=== PATIENT | male | born 1940 | race Caucasian/White ===

== ENCOUNTER 2017-04-24 12:03 | Inpatient (IN) | payer MEDICARE, BC ==
[~2017-04-24] VITALS: Ht 167.6 cm; Wt 58.3 kg
[~2017-04-24 12:03] MED LIST: ADV25050 INHALATION; ALBU18HF INHALATION; AMLO5TAB4 PO; ASPI-664 PO; ATEN-138 PO; CLON-379 PO; HYDR-3671 PO; SIMV40TA2 PO
[2017-04-24 12:05] VITALS: Ht 167.6 cm; Wt 58.3 kg
[2017-04-24 12:44] LABS: BASOPHILS % 0.4 % (0.0-2.0); EOSINOPHILS # 0.1 10^3/ul (0.0-0.5); EOSINOPHILS % 0.9 % (0.0-7.0); HEMATOCRIT 34.8 % (42.0-52.0); HEMOGLOBIN 11.4 g/dl (14.0-18.0); LYMPHOCYTES # 1.3 10^3/ul (0.8-2.9); LYMPHOCYTES % 12.8 % (15.0-51.0); MEAN CORPUSCULAR HEMOGLOBIN 29.7 pg (29.0-33.0); MEAN CORPUSCULAR HGB CONC 32.8 g/dl (32.0-37.0); MEAN CORPUSCULAR VOLUME 90.6 fl (82.0-101.0); MEAN PLATELET VOLUME 11.2 fl (7.4-10.4); MONOCYTE # 1.1 10^3/ul (0.3-0.9); MONOCYTES % 10.7 % (0.0-11.0); NEUTROPHIL # 7.4 10^3/ul (1.6-7.5); NEUTROPHILS % 74.9 % (39.0-77.0); PLATELET COUNT 257 10^3/UL (140-415); RED BLOOD COUNT 3.84 10^6/ul (4.70-6.10); RED CELL DISTRIBUTION WIDTH 12.4 % (11.5-14.5); WHITE BLOOD COUNT 9.8 10^3/ul (4.8-10.8)
[2017-04-24 13:01] LABS: INR 0.97; PROTIME 12.9 Sec (12.2-14.2)
[2017-04-24 13:05] LABS: ALBUMIN/GLOBULIN RATIO 0.74; ANION GAP 16 (8-16)
[2017-04-24 13:07] LABS: ALANINE AMINOTRANSFERASE 20 IU/L (13-69); ALBUMIN 3.8 g/dl (3.3-4.9); ALKALINE PHOSPHATASE 191 IU/L (42-121); ASPARTATE AMINO TRANSFERASE 24 IU/L (15-46); BILIRUBIN,INDIRECT 0.4 mg/dl (0-1.1); BILIRUBIN,TOTAL 0.4 mg/dl (0.2-1.3); BLOOD UREA NITROGEN 14 mg/dl (7-20); CALCIUM 9.4 mg/dl (8.4-10.2); CARBON DIOXIDE 29 mmol/L (21-31); CHLORIDE 99 mmol/L (97-110); CREATININE 0.89 mg/dl (0.61-1.24); GLUCOSE 106 mg/dl (70-220); POTASSIUM 4.2 mmol/L (3.5-5.1); SODIUM 140 mmol/L (135-144); TOTAL PROTEIN 8.9 g/dl (6.1-8.1)
--- NOTE | 2017-04-24 13:13 | RADRPT ---
PROCEDURE: XR Chest. CLINICAL INDICATION: Chest pain TECHNIQUE: Single frontal view of the chest was obtained. COMPARISON: 07/26/15 FINDINGS: The heart is within normal limits. The thoracic aorta is calcified. There is right upper lobe scarring with scattered calcified granulomas. There is no pleural effusion or pneumothorax. RPTAT: AA IMPRESSION: Right upper lobe scarring with scattered calcified granulomas. Calcified aorta consistent with atherosclerotic disease. .Boogie Hampton MD, MD Date Time Electronically viewed and signed by .Boogie Hampton MD, MD on 04/24/2017 13:13 .S/
--- NOTE | 2017-04-24 13:19 | ERD ---
ER Documentation Chief Complaint Chief Complaint Complains of HTN and chest pain HPI 76-year-old man brought in by family member for elevated blood pressure for the last week despite using his antihypertensives as prescribed. Patient also describes daily shortness of breath, orthopnea, dyspnea on exertion for 3-4 days. He denies chest pain, he continues to smoke, denies fever today, no vomiting or diarrhea, no headache or blurry vision. ROS All systems reviewed and are negative except as per history of present illness. Medications Home Meds Active Scripts Albuterol Sulfate* (Ventolin HFA*) 18 Gm Hfa.aer.ad, 2 PUFF INHALATION Q4H, #1 INHALER Prov:ARIK BERG 07/28/15 Salmeterol Xinaf/Fluticasone* (Advair*) 250-50 Diskus Inhaler, 1 INH INHALATION BID for 30 Days, INHALER Prov:REGARIK SANTIZO 07/28/15 Clonidine Hcl* (Clonidine Hcl*) 0.1 Mg Tab, 0.1 MG PO Q4H Y for sbp>160, #30 TAB Prov:REGARIK SANTIZO 07/28/15 Hydralazine Hcl* (Hydralazine Hcl*) 25 Mg Tab, 25 MG PO Q8 for 30 Days, TAB Prov:REGARIK SANTIZO 07/28/15 Atenolol (Tenormin) 25 Mg Tab, 12.5 MG PO BID for 30 Days, TAB Prov:REGARIK SANTIZO 07/28/15 Amlodipine Besylate* (Norvasc*) 5 Mg Tab, 5 MG PO BID for 30 Days, TAB Prov:ARIK BERG 07/28/15 Reported Medications Simvastatin* (Zocor*) 40 Mg Tablet, 40 MG PO QHS, #30 TAB 07/26/15 Aspirin* (Aspirin* EC) 81 Mg Tablet.dr, 81 MG PO DAILY, TAB 07/26/15 Allergies Allergies: Coded Allergies: No Known Allergy (Unverified , 07/26/15) PMhx/Soc Dyslipidemia, CAD, hypertension, COPD, CHF History of Surgery: Yes (CABG with stenting) Anesthesia Reaction: No Hx Neurological Disorder: No Hx Respiratory Disorders: No Hx Cardiac Disorders: Yes (CABG) Hx Psychiatric Problems: No Hx Miscellaneous Medical Probl: No Hx Alcohol Use: Yes (occassional) Hx Substance Use: No Hx Tobacco Use: Yes (12 cigarettes/day) FmHx Family History: No diabetes Physical Exam Vitals Vital Signs Date Time Temp Pulse Resp B/P Pulse Ox O2 Delivery O2 Flow Rate FiO2 04/24/17 12:05 98.2 57 20 189/77 98 Physical Exam GENERAL: Well-developed, well-nourished, well-hydrated, in no apparent distress , looks nontoxic in appearance HEENT: Moist mucous membranes, pink conjunctiva, no cervical spine tenderness or step-off deformities, no goiter, no jaundice or icterus, extraocular movements intact without pain. No submandibular induration, and no pharyngeal erythema NEURO: Alert and oriented 3, cranial nerves II through XII intact bilaterally, pupils equal round reactive to light, no focal deficits or facial asymmetry, sensation intact distally Strength 5/5 in upper and lower extremities bilaterally CARDIAC: Bradycardic and regular, no murmurs rubs or gallops LUNGS: Crackles at the bases, no stridor ABDOMEN: Soft nontender, no guarding, no rigidity, no rebound, no psoas sign no obturator sign. Normoactive bowel sounds SKIN: Warm and dry to touch, no abrasions, contusions, or hematomas, no lacerations, no ecchymosis, no target lesions, and without ulcers EXTREMITIES: No clubbing cyanosis or edema, calves are bilaterally symmetrical, no Homans sign, no popliteal cord sign. Distal pulses equal and bilateral PSYCH: Normal affect without agitation or irritability Result Diagram: 04/24/17 1235 04/24/17 1235 Results 24 hrs Laboratory Tests Test 04/24/17 12:34 04/24/17 12:35 B-Type Natriuretic Peptide 2100PG/ML White Blood Count 9.810^3/ul Red Blood Count 3.8410^6/ul Hemoglobin 11.4g/dl Hematocrit 34.8% Mean Corpuscular Volume 90.6fl Mean Corpuscular Hemoglobin 29.7pg Mean Corpuscular Hemoglobin Concent 32.8g/dl Red Cell Distribution Width 12.4% Platelet Count 85547^3/UL Mean Platelet Volume 11.2fl Neutrophils % 74.9% Lymphocytes % 12.8% Monocytes % 10.7% Eosinophils % 0.9% Basophils % 0.4% Nucleated Red Blood Cells % 0.0/100WBC Neutrophils # 7.410^3/ul Lymphocytes # 1.310^3/ul Monocytes # 1.110^3/ul Eosinophils # 0.110^3/ul Basophils # 0.010^3/ul Nucleated Red Blood Cells # 0.010^3/ul Prothrombin Time 12.9Sec Prothrombin Time Ratio 1.0 INR International Normalized Ratio 0.97 Sodium Level 140mmol/L Potassium Level 4.2mmol/L Chloride Level 99mmol/L Carbon Dioxide Level 29mmol/L Anion Gap 16 Blood Urea Nitrogen 14mg/dl Creatinine 0.89mg/dl Glucose Level 106mg/dl Calcium Level 9.4mg/dl Iron Level 23ug/dl Total Iron Binding Capacity 245ug/dl Percent Iron Saturation 9% SAT Total Bilirubin 0.4mg/dl Direct Bilirubin 0.00mg/dl Indirect Bilirubin 0.4mg/dl Aspartate Amino Transf (AST/SGOT) 24IU/L Alanine Aminotransferase (ALT/SGPT) 20IU/L Alkaline Phosphatase 191IU/L Troponin I < 0.012ng/ml Total Protein 8.9g/dl Albumin 3.8g/dl Globulin 5.10g/dl Albumin/Globulin Ratio 0.74 Triglycerides Level 94mg/dl Cholesterol Level 140mg/dl LDL Cholesterol, Calculated 92mg/dl HDL Cholesterol 29mg/dl Cholesterol/HDL Ratio 4.8RATIO Lipase 42U/L Current Medications Medications (Trade) Dose Ordered Sig/Carlos Route PRN Reason Start Time Stop Time Status Last Admin Dose Admin Aspirin (Aspirin) 162 mg ONCE ONCE PO 04/24/17 13:30 04/24/17 13:31 DC 04/24/17 13:33 Furosemide (Lasix) 40 mg ONCE ONCE IV 04/24/17 13:30 04/24/17 13:31 DC 04/24/17 13:32 Procedures/[facility] IV line was established patient was placed on playground monitor rhythm strip revealed a sinus rhythm at about 60 bpm with upright P and T waves. Patient was afebrile EKG performed, read by me revealed a sinus bradycardia 56 bpm, normal axis, narrow QRS complex, no concerning ST elevations or depressions noted. One view chest x-ray performed, read by me there is cardiomegaly and bibasilar congestion, no acute infiltrates, no pneumothorax. CBC and electrolytes were normal, liver function tests were normal, troponin was negative, BNP elevated at over 2000. I treated the patient here with aspirin 162 mg p.o. for cardioprotective measures and furosemide 40 mg IV 1 for diuresis. Patient presented hypertensive initially although blood pressure did improve after above therapy. He will be admitted to telemetry setting for continued medical management and cardiology consultation. Departure Diagnosis: Primary Impression: CHF (congestive heart failure) Congestive heart failure type: systolic Congestive heart failure chronicity: acute Qualified Code: I50.21 - Acute systolic congestive heart failure Additional Impression: Hypertension Hypertension type: essential hypertension Qualified Code: I10 - Essential hypertension Condition: PEREZ Goldsmith MD Apr 24, 2017 13:19
[2017-04-24 13:23] LABS: TROPONIN-I < 0.012 ng/ml (0.00-0.12)
[2017-04-24] MEDS ORDERED: FUROSEMIDE 40 MG INJ IV ONE (13:30)
[2017-04-24] MEDS ORDERED: ASPIRIN 81 MG TAB PO ONE (13:30)
[2017-04-24] MEDS ORDERED: ACETAMINOPHEN 325 MG TAB PO PRN (15:30)
[2017-04-24] MEDS ORDERED: NITROGLYCERIN (SL) 0.4 MG TAB SL PRN (15:30)
[2017-04-24] MEDS ORDERED: MAGNESIUM HYDROXIDE 30ML CUP PO PRN (15:30)
[2017-04-24] MEDS ORDERED: ALBUTEROL 0.083% (NEB) 2.5 MG/3 ML AMP HHN PRN (15:30)
[2017-04-24] MEDS ORDERED: morphine 2 MG INJ IV PRN (15:30)
[2017-04-24] MEDS ORDERED: ONDANSETRON 4 MG INJ IV PRN (15:30)
[2017-04-24] MEDS ORDERED: NACL 0.9% 3 ML SYG IV SCH (15:30)
[2017-04-24] MEDS ORDERED: DOCUSATE SODIUM 100 MG CAP PO PRN (15:30)
--- NOTE | 2017-04-24 15:32 | HP ---
Date/Time of Note Date/Time of Note DATE: 04/24/17 TIME: 15:26 Assessment/Plan VTE Prophylaxis VTE Prophylaxis Intervention: LMWH Assessment/Plan Assessment/Plan 1. Shortness of breath - BNP 1999 - Given one dose of Lasix in ED but does not appear overloaded on examination - Will continue on Lasix 40mg IV daily and change to PO once SOB improved - CXR does not show any acute abnormalities 2. Hypertensive urgency - BP 180s upon presentation and per daughter has been 180-200s at home since URI started - Will continue home medications and adjust as needed. Will add lose dose Lisinopril - Patient has follow up with Cardiology on Thursday. Will hold off on Cardiology consult for now 3. CAD s/p CABG - continue home medications 4. Acute on chronic CHF - BNP 1999 - ECHO ordered - IV Lasix on board 5. Anemia - no acute bleeding appreciated - check iron studies 6. Diet - Cardiac 7. GI ppx - Pepcid 8. DVT - LMWH 9. Code - Full 10. Disposition - Admit to telemetry for further monitoring HPI/ROS Admit Date/Time Admit Date/Time 04/24/17 Hx of Present Illness 76 yo M with PMH CABG 2005, HTN, HLD, CAD and tobacco abuse presented to ED with worsening shortness of breath. Daughter at bedside and history obtained from patient as well as family. Patient has been experiencing URI for the past 2 weeks with fevers (last 2 days ago) and cough with productive sputum. His BP has been uncontrolled as well during this time. Patient follows with piece presser as outpatient but unsure name and has appointment on Thursday with him. Patient denies any chest pain, nausea, vomiting, abdominal pain, LOC, dizziness, constipation, or diarrhea. ROS Constitutional: No chills, No diaphoresis, No fatigue, No febrile, No nausea Eyes: no complaints ENT: No congestion, No discharge Respiratory: cough, shortness of breath, sputum, No wheezing Cardiovascular: No chest pain, No edema, No lightheadedness, No palpitations Gastrointestinal: no complaints, No constipation, No diarrhea, No nausea, No vomiting Genitourinary: no complaints Musculoskeletal: no complaints Skin: no complaints Neurologic: no complaints Endocrine: no complaints Lymphatic: no complaints Psychological: no complaints Immunologic: no complaints PMH/Family/Social Past Medical History Medical History: congestive heart failure, coronary artery disease, high cholesterol, hypertension Past Surgical History Past Surgical Hx: angioplasty, coronary bypass surgery Family History Significant Family History: no pertinent family hx Social History Alcohol Use: none Smoking Status: Former smoker Drug Use: none Exam/Review of Systems Vital Signs Vitals Vital Signs Date Time Temp Pulse Resp B/P Pulse Ox O2 Delivery O2 Flow Rate FiO2 04/24/17 12:05 98.2 57 20 189/77 98 Exam Constitutional: alert, oriented, well developed, No distress Psych: nl mood/affect Head: atraumatic, normocephalic Eyes: EOMI, PERRL, nl sclera ENMT: mucosa pink and moist, nl external ears & nose Neck: non-tender, supple Respiratory: clear to auscultation, diminished breath sounds (bases), No crackles/rales, No wheezing Cardiovascular: nl pulses, regular rate and rhythm, No edema Gastrointestinal: non-tender, soft, No distended, No rebound or guarding Genitourinary - Male: No CVA tenderness Musculoskeletal: nl extremities to inspection Extremities: normal pulses Neurological: INFORMATION SYSTEMS PLANNER II-XII intact, nl mental status, nl speech Skin: nl turgor Lymph: nl lymph nodes Labs Result Diagram: 04/24/17 1235 04/24/17 1235 Medications Medications Home medications reviewed Current Medications Amlodipine Besylate (Norvasc) 5 mg BID PO ; Start 04/24/17 at 21:00; Status UNV Aspirin (Halfprin) 81 mg DAILY PO ; Start 04/25/17 at 09:00; Status UNV Atenolol (Tenormin) 12.5 mg BID PO ; Start 04/24/17 at 21:00; Status UNV Clonidine (Catapres) 0.1 mg Q4H PRN PO sbp>160; Start 04/24/17 at 15:30; Status UNV Hydralazine HCl (Apresoline) 25 mg Q8 PO ; Start 04/24/17 at 22:00; Status UNV Salmeterol Xinafoate/ Fluticasone (Advair 250/50 Diskus) 1 inh BID INH ; Start 04/24/17 at 21:00; Status UNV Miscellaneous Information 40 mg QHS PO ; Start 04/24/17 at 21:00; Status UNV Furosemide (Lasix) 40 mg DAILY IV ; Start 04/25/17 at 09:00; Status UNV Ondansetron HCl (Zofran Inj) 4 mg Q6H PRN IV NAUSEA AND/OR VOMITING; Start at 15:30; Status UNV Nitroglycerin (Nitroglycerin (Sl Tab) 0.4 Mg) 1 tab Q5M PRN SL CHEST PAIN; Start 04/24/17 at 15:30; Status UNV Acetaminophen (Tylenol Tab) 650 mg Q6H PRN PO PAIN LEVEL 1-3 OR FEVER; Start 04/24/17 at 15:30; Status UNV Morphine Sulfate (morphine) 2 mg Q4H PRN IV PAIN LEVEL 7-10; Start 04/24/17 at 15:30; Status UNV Docusate Sodium (Colace) 100 mg Q12H PRN PO CONSTIPATION; Start 04/24/17 at 15 :30; Status UNV Magnesium Hydroxide (Milk Of Mag) 30 ml DAILY PRN PO CONSTIPATION; Start 04/24 at 15:30; Status UNV Famotidine (Pepcid) 20 mg Q12 PO ; Start 04/24/17 at 21:00; Status UNV Enoxaparin Sodium (Lovenox) 40 mg DAILY SC ; Start 04/25/17 at 09:00; Status UNV Procedures Procedures PROCEDURE: XR Chest. CLINICAL INDICATION: Chest pain TECHNIQUE: Single frontal view of the chest was obtained. COMPARISON: 07/26/15 FINDINGS: The heart is within normal limits. The thoracic aorta is calcified. There is right upper lobe scarring with scattered calcified granulomas. There is no pleural effusion or pneumothorax. RPTAT: AA IMPRESSION: Right upper lobe scarring with scattered calcified granulomas. Calcified aorta consistent with atherosclerotic disease. RAMIN YBARRA MD Apr 24, 2017 15:32
[2017-04-24 16:50] LABS: IRON 23 ug/dl (35-150)
[2017-04-24 16:51] LABS: CHOL/HDL RATIO 4.8 RATIO
[2017-04-24 16:59] LABS: TOTAL IRON BINDING CAPACITY 245 ug/dl (241-421)
[2017-04-24 17:10] VITALS: BP 144/74; PULSE 65; RESP 18
[2017-04-24] MEDS: LISINOPRIL 5 MG TAB PO SCH (18:15)
[2017-04-24 20:10] VITALS: PULSE 50
[2017-04-24 20:15] VITALS: BP 138/61; RESP 20
[2017-04-24] MEDS ORDERED: ATORVASTATIN 20 MG TAB PO SCH (21:00)
[2017-04-24] MEDS: ATENOLOL 25 MG TAB PO SCH (21:00)
[2017-04-24] MEDS: SALMETEROL/FLUTICASONE 250/50 INHA INH SCH (21:08)
[2017-04-24] MEDS: AMLODIPINE 5 MG TAB PO SCH (21:08)
[2017-04-24] MEDS: FAMOTIDINE 20 MG TAB PO SCH (21:09)
[2017-04-24 23:48] VITALS: BP 129/64; RESP 20
[2017-04-25] VITALS (8 sets, daily range): BP systolic 118–144; BP diastolic 58–67; PULSE 54–64; RESP 16–20
[2017-04-25 07:23] LABS: BASOPHILS % 0.4 % (0.0-2.0); EOSINOPHILS # 0.1 10^3/ul (0.0-0.5); EOSINOPHILS % 0.9 % (0.0-7.0); HEMATOCRIT 31.3 % (42.0-52.0); HEMOGLOBIN 10.6 g/dl (14.0-18.0); LYMPHOCYTES # 1.4 10^3/ul (0.8-2.9); LYMPHOCYTES % 18.3 % (15.0-51.0); MEAN CORPUSCULAR HEMOGLOBIN 29.9 pg (29.0-33.0); MEAN CORPUSCULAR HGB CONC 33.9 g/dl (32.0-37.0); MEAN CORPUSCULAR VOLUME 88.4 fl (82.0-101.0); MONOCYTES % 12.6 % (0.0-11.0); NEUTROPHIL # 5.2 10^3/ul (1.6-7.5); NEUTROPHILS % 67.5 % (39.0-77.0); PLATELET COUNT 255 10^3/UL (140-415); RED BLOOD COUNT 3.54 10^6/ul (4.70-6.10); RED CELL DISTRIBUTION WIDTH 12.2 % (11.5-14.5); WHITE BLOOD COUNT 7.7 10^3/ul (4.8-10.8)
[2017-04-25 08:09] LABS: ALBUMIN 3.2 g/dl (3.3-4.9); CREATININE 0.79 mg/dl (0.61-1.24); MAGNESIUM 1.7 mg/dl (1.7-2.5); PHOSPHORUS 3.8 mg/dl (2.5-4.9)
[2017-04-25] MEDS: SALMETEROL/FLUTICASONE 250/50 INHA INH SCH (08:44)
[2017-04-25] MEDS: FAMOTIDINE 20 MG TAB PO SCH (08:46)
[2017-04-25] MEDS: LISINOPRIL 5 MG TAB PO SCH (08:46)
[2017-04-25] MEDS: AMLODIPINE 5 MG TAB PO SCH (08:46)
[2017-04-25] MEDS: ATENOLOL 25 MG TAB PO SCH (08:55)
[2017-04-25] MEDS ORDERED: ENOXAPARIN 40 MG/0.4 ML SYG SC SCH (09:00)
[2017-04-25] MEDS ORDERED: FUROSEMIDE 40 MG INJ IV SCH (09:00)
[2017-04-25] MEDS ORDERED: ASPIRIN (EC) 81 MG TAB PO SCH (09:00)
[2017-04-25 10:11] LABS: POTASSIUM 4.3 mmol/L (3.5-5.1)
--- NOTE | 2017-04-25 10:41 | RADRPT ---
Echocardiogram Report Patient Name: ETHAN DOUGHERTY Gender: Male Date: 1940 Study Date: 25-Apr-2017 [employer] Instructor: ABHISHEK Location: I Ref. Physician: RAMIN YBARRA Quality: Good Procedures: Transthoracic echocardiogram with complete 2D, M-Mode, and doppler examination. Indications: Evaluate Left Ventricular function. 2D/M Mode Doppler Measurement Value Normal Ranges Measurement Value Normal Ranges AoR Diam MM 3.1 cm MELYSSA Vmax 2.3 cm2 ACS MM 1.8 cm MELYSSA VTI 2.3 cm2 LA/Ao MM 1.5 AV Mean Delbert 1.1 m/sec LA Dimen MM 4.7 cm AV Mean PG 5.2 mmHg LVIDd 2D 4.5 3.5 - 5.6 cm AV Peak Delbert 1.5 m/sec LVIDs 2D 3.3 2.1 - 4.1 cm AV Peak PG 9.1 mmHg LVPWd 2D 1.2 0.6 - 1.1 cm AV VTI 37.8 cm IVSd 2D 1.2 0.6 - 1.1 cm LVOT Peak Delbert 1.0 m/sec EDV 2D 94.6 cm3 LVOT Peak PG 4.3 mmHg ESV 2D 34.4 cm3 MV E Peak Delbert 1.1 m/sec LVOT Diam 2.0 cm MV A Peak Delbert 0.7 m/sec MV E/A 1.6 MV Decel Time 165 msec MV Decel [place] 7 MV E/A 1.6 TR Peak Delbert 2.6 m/sec TR Peak PG 27.1 mmHg Findings Left Ventricle: Normal left ventricular systolic function. Normal left ventricular cavity size. Mild concentric left ventricular hypertrophy. Ejection fraction is visually estimated at 55 %. Tissue Doppler/Mitral Doppler indices are consistent with pseudonormalization with mildly elevated left atrial pressure (Stage II diastolic dysfunction). Right Ventricle: Normal right ventricular size. Normal right ventricular systolic function. Left Atrium: There is moderate enlargement of left atrium. Right Atrium: There is mild enlargement of right atrium. Mitral Valve: Mild mitral annular calcification. Mild mitral valve regurgitation. Aortic Valve: Normal appearance of the aortic valve. No significant aortic stenosis or insufficiency. Tricuspid Valve: Estimated peak PA systolic pressure 30 mmHg. There is trace tricuspid regurgitation. Pulmonic Valve: No evidence of pulmonic regurgitation. Pericardium: Normal pericardium with no significant pericardial effusion. Aorta: Normal aortic root. IVC: Normal size and normal respiratory collapse consistent with normal right atrial pressure. Conclusions 1.Normal left ventricular systolic function. Normal left ventricular cavity size. Mild concentric left ventricular hypertrophy. Ejection fraction is visually estimated at 55 %. Tissue Doppler/Mitral Doppler indices are consistent with pseudonormalization with mildly elevated left atrial pressure (Stage II diastolic dysfunction). 2.Mild mitral annular calcification. Mild mitral valve regurgitation. 3.Estimated peak PA systolic pressure 30 mmHg based on RA pressure of 3 mmHg. Electronically Signed By: Douglas Diaz 25-Apr-2017 10:40:46 -0800 Patient Name: ETHAN DOUGHERTY Study Date: 25-Apr-2017 [id number]
[2017-04-25] MEDS ORDERED: predniSONE 20 MG TAB PO ONE (13:30)
[2017-04-25 14:17] LABS: ADD UMIC YES; UR ASCORBIC ACID NEGATIVE (NEGATIVE); UR BILIRUBIN (Dip) NEGATIVE (NEGATIVE); UR BLOOD (Dip) 2+ mg/dL (NEGATIVE); UR CLARITY CLEAR (CLEAR); UR COLOR YELLOW (YELLOW); UR GLUCOSE (Dip) NEGATIVE (NEGATIVE); UR KETONES (Dip) NEGATIVE (NEGATIVE); UR LEUKOCYTE ESTERASE (Dip) NEGATIVE Leu/ul (NEGATIVE); UR NITRITE (Dip) NEGATIVE (NEGATIVE); UR RBC 32 /HPF (0-5); UR SPECIFIC GRAVITY (Dip) 1.008 (1.003-1.030); UR TOTAL PROTEIN (Dip) NEGATIVE (NEGATIVE); UR UROBILINOGEN (Dip) NEGATIVE (NEGATIVE)
--- NOTE | 2017-04-25 15:14 | PDOCDIS ---
Discharge Instructions CONDITION Patient Condition: Stable HOME CARE INSTRUCTIONS: Special Diet: Cardiac Diet FOLLOW UP/APPOINTMENTS Follow-up Plan 1. Please follow up with your primary care provider and senior hr generalist as soon as possible 2. Take all medications as directed PEREZ SINGH Apr 25, 2017 15:14
[2017-04-25] MEDS ORDERED: FURO-110 PO (15:18)
[2017-04-25] MEDS ORDERED: MED4DP PO (15:18)
[2017-04-25] MEDS ORDERED: TAMS-14 PO (15:18)
[2017-04-25] MEDS ORDERED: LISI-313 PO (15:18)
[2017-04-25] MEDS ORDERED: AZIT250T6 PO (15:18)
[2017-04-25] MEDS ORDERED: AZITHROMYCIN 250 MG TAB PO ONE (15:30)
--- NOTE | 2017-04-25 15:37 | DS ---
Date/Time of Note Date/Time of Note DATE: 04/25/17 TIME: 15:37 Discharge Summary Admission/Discharge Info Admit Date/Time Apr 24, 2017 at 14:48 Discharge Date/Time Patient Condition: Stable Hx of Present Illness 76 yo M with PMH CABG 2005, HTN, HLD, CAD and tobacco abuse presented to ED with worsening shortness of breath. Daughter at bedside and history obtained from patient as well as family. Patient has been experiencing URI for the past 2 weeks with fevers (last 2 days ago) and cough with productive sputum. His BP has been uncontrolled as well during this time. Patient follows with tie sawyer as outpatient but unsure name and has appointment on Thursday with him. Patient denies any chest pain, nausea, vomiting, abdominal pain, LOC, dizziness, constipation, or diarrhea. Hospital Course Patient is a 76-year-old male with past medical history of CABG in 2005, hypertension, dyslipidemia and coronary artery disease and tobacco abuse who presents to the ED with worsening shortness of breath. Patient was admitted for hypertensive urgency and CHF exacerbation as well as possible COPD exacerbation. Patient had an elevated BNP, however chest x-ray was not convincing of overt CHF exacerbation. Patient was given IV Lasix and medications were adjusted. The next day patient felt much better and in no issues with breathing and stated that it [birth year] birthday would like to be discharged. Patient does have an appointment on April 28 with his tie sawyer and patient will be discharged with a prescription for oral Lasix as well as new medication for his blood pressure, lisinopril. Patient was also started on Flomax as he did complain of some mild urinary issues including momentary pain right before urination, UA was negative, patient will be given azithromycin for possible COPD exacerbation as well as a tapering dose of steroids. Patient's echocardiogram did not show any acute issues and patient will be discharged under care of his daughter, who he lives with. Patient understands to continue all other home medications Shortness of breath Cough Upper respiratory infection COPD exacerbation Coronary artery disease CHF exacerbation Acute on chronic CHF Anemia Home Meds Active Scripts Methylprednisolone* (Medrol* DOSE PACK) 4 Mg/Dose-Pack Tab.ds.pk, 4 MG PO . DIRECTED, #1 PACKET Prov:PEREZ SINGH 04/25/17 Azithromycin* (Azithromycin*) 250 Mg Tablet, 250 MG PO DAILY, #4 TAB Prov:PEREZ SINGH 04/25/17 Furosemide* (Lasix*) 20 Mg Tablet, 20 MG PO DAILY for 30 Days, TAB Prov:PEREZ SINGH 04/25/17 Lisinopril* (Lisinopril*) 5 Mg Tablet, 5 MG PO DAILY for 30 Days, #30 TAB Prov:PEREZ SINGH 04/25/17 Tamsulosin Hcl* (Flomax*) 0.4 Mg Cap.er.24h, 0.4 MG PO HS for 30 Days, #30 CAP Prov:PEREZ SINGH 04/25/17 Albuterol Sulfate* (Ventolin HFA*) 18 Gm Hfa.aer.ad, 2 PUFF INHALATION Q4H, #1 INHALER Prov:ARIK BERG 07/28/15 Salmeterol Xinaf/Fluticasone* (Advair*) 250-50 Diskus Inhaler, 1 INH INHALATION BID for 30 Days, INHALER Prov:ARIK BERG 07/28/15 Clonidine Hcl* (Clonidine Hcl*) 0.1 Mg Tab, 0.1 MG PO Q4H Y for sbp>160, #30 TAB Prov:ARIK BERG 07/28/15 Hydralazine Hcl* (Hydralazine Hcl*) 25 Mg Tab, 25 MG PO Q8 for 30 Days, TAB Prov:ARIK BERG 07/28/15 Atenolol (Tenormin) 25 Mg Tab, 12.5 MG PO BID for 30 Days, TAB Prov:REGARIK SANTIZO 07/28/15 Amlodipine Besylate* (Norvasc*) 5 Mg Tab, 5 MG PO BID for 30 Days, TAB Prov:ARIK BERG 07/28/15 Reported Medications Simvastatin* (Zocor*) 40 Mg Tablet, 40 MG PO QHS, #30 TAB 07/26/15 Aspirin* (Aspirin* EC) 81 Mg Tablet.dr, 81 MG PO DAILY, TAB 07/26/15 Follow-up Plan 1. Please follow up with your primary care provider and tie sawyer as soon as possible 2. Take all medications as directed Primary Care Provider Deric Norwood Time spent on discharge: > 30 minutes Pending Labs Laboratory Tests Test 04/24/17 19:03 04/25/17 00:34 04/25/17 06:56 04/25/17 13:45 Troponin I < 0.012ng/ml (0.00-0.12) 0.014ng/ml (0.00-0.12) < 0.012ng/ml (0.00-0.12) White Blood Count 7.710^3/ul (4.8-10.8) Red Blood Count 3.5410^6/ul (4.70-6.10) Hemoglobin 10.6g/dl (14.0-18.0) Hematocrit 31.3% (42.0-52.0) Mean Corpuscular Volume 88.4fl (82.0-101.0) Mean Corpuscular Hemoglobin 29.9pg (29.0-33.0) Mean Corpuscular Hemoglobin Concent 33.9g/dl (32.0-37.0) Red Cell Distribution Width 12.2% (11.5-14.5) Platelet Count 19961^3/UL (140-415) Mean Platelet Volume 11.0fl (7.4-10.4) Neutrophils % 67.5% (39.0-77.0) Lymphocytes % 18.3% (15.0-51.0) Monocytes % 12.6% (0.0-11.0) Eosinophils % 0.9% (0.0-7.0) Basophils % 0.4% (0.0-2.0) Nucleated Red Blood Cells % 0.0/100WBC (0.0-0.0) Neutrophils # 5.210^3/ul (1.6-7.5) Lymphocytes # 1.410^3/ul (0.8-2.9) Monocytes # 1.010^3/ul (0.3-0.9) Eosinophils # 0.110^3/ul (0.0-0.5) Basophils # 0.010^3/ul (0.0-0.1) Nucleated Red Blood Cells # 0.010^3/ul (0.0-0.0) Sodium Level 137mmol/L (135-144) Potassium Level 4.3mmol/L (3.5-5.1) Chloride Level 100mmol/L (97-110) Carbon Dioxide Level 28mmol/L (21-31) Anion Gap 13 (8-16) Blood Urea Nitrogen 14mg/dl (7-20) Creatinine 0.79mg/dl (0.61-1.24) Glucose Level 92mg/dl (70-220) Calcium Level 9.0mg/dl (8.4-10.2) Phosphorus Level 3.8mg/dl (2.5-4.9) Magnesium Level 1.7mg/dl (1.7-2.5) Albumin 3.2g/dl (3.3-4.9) Urine Color YELLOW (YELLOW) Urine Clarity CLEAR (CLEAR) Urine pH 6.0 (5.0-9.0) Urine Specific [place] 1.008 (1.003-1.030) Urine Ketones NEGATIVEmg/dL (NEGATIVE) Urine Nitrite NEGATIVEmg/dL (NEGATIVE) Urine Bilirubin NEGATIVEmg/dL (NEGATIVE) Urine Urobilinogen NEGATIVEmg/dL (NEGATIVE) Urine Leukocyte Esterase NEGATIVELeu/ul (NEGATIVE) Urine Microscopic RBC 32/HPF (0-5) Urine Microscopic WBC 3/HPF (0-5) Urine Hemoglobin 2+mg/dL (NEGATIVE) Urine Glucose NEGATIVEmg/dL (NEGATIVE) Urine Total Protein NEGATIVEmg/dl (NEGATIVE) PEREZ SINGH Apr 25, 2017 15:37
[2017-04-25] MEDS ORDERED: TAMSULOSIN (SR) 0.4 MG CAP PO SCH (21:00)
== END 2017-04-25 16:58 | disposition home or self-care (01) | DRG 292 ==
LOC: E/R 12:03 → MS4 14:48
PROVIDERS: ADMIT Internal Medicine; ATTEND Internal Medicine
DX: I11.0 Hypertensive heart disease with heart failure (principal); J44.1 Chronic obstructive pulmonary disease with (acute) exacerbation; Z95.1 Presence of aortocoronary bypass graft; D64.9 Anemia, unspecified; I50.23 Acute on chronic systolic (congestive) heart failure; I16.0 Hypertensive urgency; I25.10 Atherosclerotic heart disease of native coronary artery without angina pectoris; E78.5 Hyperlipidemia, unspecified; F17.210 Nicotine dependence, cigarettes, uncomplicated; Z95.5 Presence of coronary angioplasty implant and graft; J06.9 Acute upper respiratory infection, unspecified
CPT/HCPCS: 36415; 71010; 80053; 80061; 80069; 81001; 83540; 83690; 83735; 83880; 84443; 84484; 85025; 85610; 93005; 93306; 96374; J1650; J1940; J7512

== ENCOUNTER 2018-08-24 14:46 | Inpatient (IN) | payer MEDICARE, BC ==
[~2018-08-24] VITALS: Ht 165.1 cm; Wt 54.5 kg
[~2018-08-24 14:46] MED LIST changes: -ASPI-664 PO; +ASPI-817 PO; +AZIT250T13 PO; +FURO-110 PO; +LISI-313 PO; +MED4DP PO; +TAMS-14 PO
--- NOTE | 2018-08-24 16:43 | ERD ---
ER Documentation Chief Complaint Chief Complaint COUGH HPI The patient is a 78-year-old male, presenting to the ER because of cough, fever, dyspnea for the last 3 days, worse today. He went to his doctor office who sent him to the emergency department. He denies facial pain, neck pain, chest pain, abdominal pain, vomiting, dysuria, diarrhea. He smokes socially, denies drinking Past medical history: Dyslipidemia, hypertension, CAD, history of CHF, Parkinson disease Past surgical history: CABG ROS All systems reviewed and are negative except as per history of present illness. Medications Home Meds Reported Medications Carbidopa/Levodopa (Carbidopa-Levodopa 25-100 Tab) 1 Each Tablet, 1 EACH PO TID, TAB 08/24/18 Olmesartan/Hydrochlorothiazide (Olmesartan-Hctz 20-12.5 mg Tab) 1 Each Tablet, 1 EACH PO DAILY, TAB 08/24/18 Amlodipine Besylate* (Norvasc*) 5 Mg Tablet, 5 MG PO DAILY, TAB 08/24/18 Propranolol Hcl* (Propranolol Hcl*) 20 Mg Tablet, 20 MG PO BID, TAB 08/24/18 Rosuvastatin Calcium* (Crestor*) 10 Mg Tablet, 10 MG PO QHS, #30 TAB 08/24/18 Clonidine Hcl* (Clonidine Hcl*) 0.1 Mg Tab, 0.1 MG PO NEEDED PRN for HTN, TAB 08/24/18 Discontinued Reported Medications Simvastatin* (Zocor*) 40 Mg Tablet, 40 MG PO QHS, #30 TAB 07/26/15 Aspirin* (Aspirin* EC) 81 Mg Tablet.dr, 81 MG PO DAILY, TAB 07/26/15 Discontinued Scripts Methylprednisolone* (Medrol* DOSE PACK) 4 Mg/Dose-Pack Tab.ds.pk, 4 MG PO . DIRECTED, #1 PACKET Prov:PEREZ SINGH 04/25/17 Azithromycin* (Azithromycin*) 250 Mg Tablet, 250 MG PO DAILY, #4 TAB Prov:PEREZ SINGH 04/25/17 Furosemide* (Lasix*) 20 Mg Tablet, 20 MG PO DAILY for 30 Days, TAB Prov:PEREZ SINGH 04/25/17 Lisinopril* (Lisinopril*) 5 Mg Tablet, 5 MG PO DAILY for 30 Days, #30 TAB Prov:PEREZ SINGH 04/25/17 Tamsulosin Hcl* (Flomax*) 0.4 Mg Cap.er.24h, 0.4 MG PO HS for 30 Days, #30 CAP Prov:PEREZ SINGH 04/25/17 Albuterol Sulfate* (Ventolin HFA*) 18 Gm Hfa.aer.ad, 2 PUFF INHALATION Q4H, #1 INHALER Prov:REGIDORadhaARIK 07/28/15 Salmeterol Xinaf/Fluticasone* (Advair*) 250-50 Diskus Inhaler, 1 INH INHALATION BID for 30 Days, INHALER Prov:REGIDORARIK 07/28/15 Clonidine Hcl* (Clonidine Hcl*) 0.1 Mg Tab, 0.1 MG PO Q4H PRN for sbp>160, #30 TAB Prov:REGIDORARIK 07/28/15 Hydralazine Hcl* (Hydralazine Hcl*) 25 Mg Tab, 25 MG PO Q8 for 30 Days, TAB Prov:REGIDORARIK 07/28/15 Atenolol (Tenormin) 25 Mg Tab, 12.5 MG PO BID for 30 Days, TAB Prov:REGIDORARIK 07/28/15 Amlodipine Besylate* (Norvasc*) 5 Mg Tab, 5 MG PO BID for 30 Days, TAB Prov:REGIDORARIK 07/28/15 Allergies Allergies: Coded Allergies: No Known Allergy (Unverified , 08/24/18) PMhx/Soc History of Surgery: Yes (Open Heart Sx 2005) Anesthesia Reaction: No Hx Neurological Disorder: No Hx Respiratory Disorders: No Hx Cardiac Disorders: Yes (htn, high cholesterol, cad, chf) Hx Psychiatric Problems: No Hx Miscellaneous Medical Probl: Yes (anemia) Hx Alcohol Use: No Hx Substance Use: No Hx Tobacco Use: Yes Physical Exam Vitals Vital Signs Date Temp Pulse Resp B/P (MAP) Pulse Ox O2 O2 Flow FiO2 Time Delivery Rate 08/24/18 Simple 10 18:11 Mask 08/24/18 88 32 137/82 93 18:05 (100) 08/24/18 88 32 137/82 93 Nasal 2.0 18:05 (100) Cannula 08/24/18 Nasal 2 18:05 Cannula 08/24/18 88 20 96 Nasal 2.0 16:57 Cannula 08/24/18 98.6 94 24 135/66 90 15:56 (89) Physical Exam Const: No acute distress. Dehydrated Head: Atraumatic. Eyes: Normal Conjunctiva. ENT: Normal External Ears, Nose and Mouth. Neck: Full range of motion. No meningismus. Resp: Mild Bilateral expiratory wheezes. Cardio: Tachypneic, bilateral expiratory wheezes Abd: Soft, non distended, normal bowel sounds, non tender. Skin: No petechiae or rashes. Back: No midline or flank tenderness. Ext: No cyanosis, or edema. Neur: Awake and alert. No focal deficit. Cogwheel rigidity in upper extremities Psych: Normal Mood and Affect. Result Diagram: 08/24/18 1712 08/24/18 1712 Results 24 hrs Laboratory Tests Test 08/24/18 17:01 08/24/18 17:12 POC Venous Lactate 1.8 mmol/L White Blood Count 10.8 10^3/ul Red Blood Count 4.10 10^6/ul Hemoglobin 12.4 g/dl Hematocrit 37.1 % Mean Corpuscular Volume 90.5 fl Mean Corpuscular Hemoglobin 30.2 pg Mean Corpuscular Hemoglobin Concent 33.4 g/dl Red Cell Distribution Width 13.0 % Platelet Count 228 10^3/UL Mean Platelet Volume 11.6 fl Immature Granulocytes % 0.900 % Neutrophils % % Segmented Neutrophils % (Manual) 51 % Band Neutrophils % (Manual) 12 % Lymphocytes % % Lymphocytes % (Manual) 16 % Monocytes % % Monocytes % (Manual) 21 % Eosinophils % % Basophils % % Nucleated Red Blood Cells % 0.0 /100WBC Immature Granulocytes # 0.100 10^3/ul Neutrophils # 10^3/ul Neutrophils # (Manual) 5.6 10^3/ul Band Neutrophils # 1.2 10^3/ul Lymphocytes (Manual) 1.7 10^3/ul Lymphocytes # 10^3/ul Monocytes # 10^3/ul Monocytes # (Manual) 2.2 10^3/ul Eosinophils # 10^3/ul Basophils # 10^3/ul Nucleated Red Blood Cells # 10^3/ul Platelet Estimate NORMAL Poikilocytosis 1+ Prothrombin Time 12.3 Sec Prothrombin Time Ratio 1.0 INR International Normalized Ratio 0.90 Activated Partial Thromboplast Time 35.3 Sec Sodium Level 136 mmol/L Potassium Level 4.9 mmol/L Chloride Level 100 mmol/L Carbon Dioxide Level 22 mmol/L Anion Gap 14 Blood Urea Nitrogen 34 mg/dl Creatinine 1.26 mg/dl Est Glomerular Filtrat Rate mL/min mL/min Glucose Level 98 mg/dl Calcium Level 9.5 mg/dl Total Bilirubin 0.6 mg/dl Direct Bilirubin 0.00 mg/dl Indirect Bilirubin 0.6 mg/dl Aspartate Amino Transf (AST/SGOT) 26 IU/L Alanine Aminotransferase (ALT/SGPT) 6 IU/L Alkaline Phosphatase 151 IU/L Troponin I < 0.012 ng/ml Total Protein 8.7 g/dl Albumin 4.1 g/dl Globulin 4.60 g/dl Albumin/Globulin Ratio 0.89 Current Medications Medications Dose Sig/Carlos Start Time Status Last (Trade) Ordered Route PRN Stop Time Admin Dose Reason Admin Sodium 1,650 ml BOLUS OVER 2 08/24/18 DC 08/24/18 Chloride HOURS STAT 16:48 17:55 (NS) IV* 08/24/18 16:50 Ipratropium 0.5 mg ONCE STAT 08/24/18 DC 08/24/18 [place] NEB 16:50 16:57 (Atrovent 08/24/18 16:51 0.02% (Neb)) 1.25 mg ONCE STAT 08/24/18 DC 08/24/18 Levalbuterol INH 16:50 16:57 (Xopenex 08/24/18 16:51 Neb) IV Flush 10 ml STK-MED 08/24/18 DC 08/24/18 (NS 10 ml) ONCE .ROUTE 18:31 19:09 08/24/18 18:32 Sodium 100 ml @ ud STK-MED 08/24/18 DC 08/24/18 Chloride ONCE .ROUTE 18:31 19:09 08/24/18 18:32 Iodixanol 100 ml STK-MED 08/24/18 DC 08/24/18 (Visipaque ONCE .ROUTE 18:31 19:09 Locm) 08/24/18 18:32 Ceftriaxone 50 ml @ ONCE ONCE 08/24/18 Sodium 100 mls/hr IVPB 19:30 08/24/18 19:59 Azithromycin 250 ml @ ONCE ONCE 08/24/18 250 mls/hr IVPB 19:30 08/24/18 20:29 Procedures/[place]M [place] [address] Radiology Main Line: [phone] DIAGNOSTIC IMAGING REPORT Patient: ETHAN DOUGHERTY : 1940 Age: 78 Sex: M MR #: [id number] [facility] #: [id number] DOS: 08/24/18 1742 Ordering MD: RITA SANTOS MD Location: E/R Room/Bed: PROCEDURE: CT Angiography Chest With Intravenous Contrast CLINICAL INDICATION: Shortness of breath. TECHNIQUE: Axial computed tomographic angiography images of the chest with intravenous contrast using pulmonary embolism protocol. Sagittal and coronal reformatted images were created and reviewed. CTDIvol (mGy) = 28.17; total DLP (mGy-cm) = 354.36. This CT exam was performed using one or more of the following dose reduction techniques: automated exposure control, adjustment of the mA and/or kV according to patient size, and/or use of iterative reconstruction technique. DICOM images are available. MIP reconstructed images were created and reviewed. CONTRAST: 100 mL of Visipaque 320 was administered intravenously. COMPARISON: None FINDINGS: LIMITATIONS: The study is limited by respiratory motion artifact. PULMONARY ARTERIES: The pulmonary arteries are unremarkable. No pulmonary embolism demonstrated, within the technical limits of the exam. AORTA: The thoracic aorta is atherosclerotic. No aneurysm or dissection. LUNGS: Multiple calcified pulmonary granulomata noted throughout the right lung. Areas of fibrosis are noted. There is traction bronchiectasis seen in the right upper lobe. Dependent atelectasis at the lung bases, right worse than left. No mass. PLEURAL SPACE: Unremarkable. No significant effusion. No pneumothorax. HEART: Unremarkable. No cardiomegaly. No significant pericardial effusion. No evidence of RV dysfunction. BONES/JOINTS: Status post median sternotomy. Degenerative spine changes are noted. No acute fracture. No dislocation. SOFT TISSUES: Unremarkable. LYMPH NODES: Unremarkable. No enlarged lymph nodes. LIVER: Calcified granuloma right lobe of the liver. IMPRESSION: 1. The study is limited by respiratory motion artifact. 2. The pulmonary arteries are unremarkable. No pulmonary embolism demonstrated, within the technical limits of the exam. 3. The thoracic aorta is atherosclerotic. No aneurysm or dissection. 4. Multiple calcified pulmonary granulomata noted throughout the right lung. Areas of fibrosis are noted. There is traction bronchiectasis seen in the right upper lobe. Dependent atelectasis at the lung bases, right worse than left. RPTAT: HS Nicole Javier Physician Metal Worker Date Time Electronically viewed and signed by Nicole Javier Physician Metal Worker on 08/24/2018 19:09 RmC/ CC: RITA SANTOS MD [id number] [place] [address] Radiology Main Line: [phone] DIAGNOSTIC IMAGING REPORT Patient: ETHAN DOUGHERTY : 1940 Age: 78 Sex: M MR #: [id number] DOS: 08/24/18 1648 Ordering MD: RITA SANTOS MD Location: E/R Room/Bed: PROCEDURE: XR Chest. CLINICAL INDICATION: Chest pain TECHNIQUE: Single frontal view of the chest was obtained. COMPARISON: CR CHEST 07/26/2015 FINDINGS: The heart is within normal limits. The thoracic aorta is calcified. The patient is status post sternotomy. There are chronic right upper lobe calcified granulomas and scarring. There is no focal infiltrate. There is no pleural effusion or pneumothorax. RPTAT: AA IMPRESSION: Chronic right upper lobe calcified granulomas and scarring. Calcified aorta consistent with atherosclerotic disease. .Boogie Hampton MD, Date Time Electronically viewed and signed by .Boogie Hampton MD, on 08/24/2018 17:28 .S/ CC: RITA SANTOS MD [id number] EKG: Read by emergency physician Rate/Rhythm: Normal Sinus Rhythm 97 beats/min QRS, ST, T-waves: No ST elevation, no T inversion, left atrial enlargement, inferior Q waves, artifacts Impression: Abnormal EKG MEDICAL MAKING DECISION: The patient is a 78-year-old male, presenting with acute bronchitis, acute bronchospasm, acute hypoxemia, acute dehydration. He was treated with Xopenex and Atrovent nebulizer for wheezing, normosaline 30 mm/kg IV for acute dehydration, Zithromax IV and Rocephin IV for acute bronchitis with hypoxemia concerning for acute pneumonia. He responded to supplemental oxygen The differential diagnoses considered include but are not limited to asthma, COPD, pneumonia, pulmonary embolus, pleural effusion, congestive heart failure. Departure Diagnosis: Primary Impression: Hypoxemia Additional Impressions: Bronchitis Dehydration Anemia Condition: Stable Comments I discussed the findings with the patient. I discussed the patient with the hospitalist Dr Zarate at 7:20pm who was made aware of the lab, the treatment, the patient condition. The patient is admitted to Tel Disclaimer: Inadvertent spelling and grammatical errors are likely due to EHR/dictation software use and do not reflect on the overall quality of patient care. Also, please note that the electronic time recorded on this note does not necessarily reflect the actual time of the patient encounter. RITA SNATOS MD Aug 24, 2018 16:43
[2018-08-24] MEDS ORDERED: SODIUM CHLORIDE 0.9% 1L BAG IV* STA (16:48)
[2018-08-24] MEDS ORDERED: LEVALBUTEROL (NEB) 1.25 MG/0.5 ML AMP INH STA (16:50)
[2018-08-24] MEDS ORDERED: IPRATROPIUM (NEB) 0.5 MG/2.5 ML AMP NEB STA (16:50)
[2018-08-24] MEDS ORDERED: CLON-379 PO (17:37)
[2018-08-24] MEDS ORDERED: ROSU10TA55 PO (17:38)
[2018-08-24] MEDS ORDERED: PROP20TA4 PO (17:38)
[2018-08-24] MEDS ORDERED: OLME1TAB81 PO (17:39)
[2018-08-24] MEDS ORDERED: AMLO5TAB4 PO (17:39)
[2018-08-24] MEDS ORDERED: CARB1TAB34 PO (17:41)
[2018-08-24] MEDS ORDERED: SOD CHLORIDE 0.9% 100 ML ONE (18:31)
[2018-08-24] MEDS ORDERED: IODIXANOL LOCM 100 ML BTL ONE (18:31)
[2018-08-24] MEDS ORDERED: AZITHROMYCIN 500MG/NS (PMX) 250 ML IVPB ONE (19:30)
[2018-08-24] MEDS ORDERED: CEFTRIAXONE 1 GM/50 ML (PMX) 50 ML IVPB ONE (19:30)
[2018-08-24] MEDS ORDERED: hydrALAzine 20 MG INJ IV PRN (20:00)
[2018-08-24] MEDS ORDERED: METHYLPREDNISOLONE 125 MG INJ IV ONE (20:30)
[2018-08-24] MEDS ORDERED: DOCUSATE SODIUM 100 MG CAP PO PRN (20:30)
[2018-08-24] MEDS ORDERED: NACL 0.9% 3 ML SYG IV SCH (20:30)
[2018-08-24] MEDS ORDERED: ACETAMINOPHEN 325 MG TAB PO PRN (20:30)
[2018-08-24] MEDS ORDERED: ONDANSETRON 4 MG INJ IV PRN (20:30)
[2018-08-24] MEDS ORDERED: BISACODYL (EC) 5 MG TAB PO PRN (20:30)
--- NOTE | 2018-08-24 20:37 | HP ---
Date/Time of Note Date/Time of Note DATE: 08/24/18 TIME: 20:22 Assessment/Plan VTE Prophylaxis SCD applied (from Nsg): Yes Pharmacological prophylaxis: NA/contraindicated Pharm contraindication: low risk/ambulating Lines/Catheters IV Catheter Type (from Nrsg): Peripheral IV Assessment/Plan Hospital Course This is a 78-year-old male being admitted to the telemetry floor for: #1 dyspnea: Bronchitis versus COPD. Patient does not have a formal diagnosis of COPD. He does have a history of smoking. He has had a cough and fever for the last 3 days. Chest x-ray does not show any signs of pneumonia. At the current time will treat with scheduled nebulizers, prednisone burst. Protonix. C eftriaxone and azithromycin. #2 sinus bradycardia: Possibly secondary to propranolol, will hold this at the current time. Will monitor this closely. Will need to confirm with the family why he is on propanolol. Will also hold clonidine. We will need to confirm the duration of the clonidine use as abrupt cessation could result in severe reaction. will check echo, consult cardio. #3 acute versus acute on chronic kidney disease: Patient does have a mildly elevated creatinine of 1.26. Multifactorial likely secondary to dehydration, ARB effect. Will hold his combination pill with the ARB at the current time. We will continue his Norvasc. Patient did receive fluid bolus in the emergency department. Will monitor renal function. #4 hypertension: Continue Norvasc, PRN hydralazine, will hold propranolol at the current time as well as his ARB combination pill given his AK I. Will also hold his clonidine. #5 hyperlipidemia: Continue statin #6 Parkinson's disease: Continue home meds #7 DVT GI prophylaxis: SCDs, Protonix Further treatment strategy will be implemented as per the clinical course. Result Diagram: 08/24/18 1712 08/24/18 1712 Results 24hrs Laboratory Tests Test 08/24/18 17:01 08/24/18 17:12 08/24/18 19:40 POC Venous Lactate 1.8 White Blood Count 10.8 # Red Blood Count 4.10 L Hemoglobin 12.4 L Hematocrit 37.1 L Mean Corpuscular Volume 90.5 Mean Corpuscular Hemoglobin 30.2 Mean Corpuscular 33.4 Hemoglobin Concent Red Cell Distribution Width 13.0 Platelet Count 228 Mean Platelet Volume 11.6 H Immature Granulocytes % 0.900 H Neutrophils % Segmented Neutrophils 51 % (Manual) Band Neutrophils % (Manual) 12 H Lymphocytes % Lymphocytes % (Manual) 16 Monocytes % Monocytes % (Manual) 21 H Eosinophils % Basophils % Nucleated Red Blood Cells % 0.0 Immature Granulocytes # 0.100 H Neutrophils # Neutrophils # (Manual) 5.6 Band Neutrophils # 1.2 H Lymphocytes (Manual) 1.7 Lymphocytes # Monocytes # Monocytes # (Manual) 2.2 H Eosinophils # Basophils # Nucleated Red Blood Cells # Platelet Estimate NORMAL Poikilocytosis 1+ Prothrombin Time 12.3 Prothrombin Time Ratio 1.0 INR International 0.90 Normalized Ratio Activated Partial Thromboplast 35.3 H Time Sodium Level 136 Potassium Level 4.9 Chloride Level 100 Carbon Dioxide Level 22 Anion Gap 14 H Blood Urea Nitrogen 34 H Creatinine 1.26 H Est Glomerular Filtrat Rate mL/min Glucose Level 98 Calcium Level 9.5 Total Bilirubin 0.6 Direct Bilirubin 0.00 Indirect Bilirubin 0.6 Aspartate Amino 26 Transf (AST/SGOT) Alanine 6 L Aminotransferase (ALT/SGPT) Alkaline Phosphatase 151 H Troponin I < 0.012 Total Protein 8.7 H Albumin 4.1 Globulin 4.60 H Albumin/Globulin Ratio 0.89 Urine Color [place] Urine Clarity SLIGHTLY CLOUDY A Urine pH 5.0 Urine Specific [place] 1.042 H Urine Ketones NEGATIVE Urine Nitrite NEGATIVE Urine Bilirubin NEGATIVE Urine Urobilinogen 2+ H Urine Leukocyte Esterase NEGATIVE Urine Microscopic RBC 6 H Urine Microscopic WBC 4 Urine Squamous FEW Epithelial Cells Urine Hemoglobin NEGATIVE Urine Glucose NEGATIVE Urine Total Protein 2+ H HPI/ROS Admit Date/Time Admit Date/Time Hx of Present Illness Chief complaint: Cough fever times 3 days The following history was obtained from the patient's daughter Mikala over the phone as the patient was unable to provide a full history given language barrier and his limited knowledge of his medical issues. The patient is a 78-year-old male, presenting to the ER because of cough, fever, dyspnea for the last 3 days, worse today. He went to his doctor office who sent him to the emergency department as a doctor suspect that he may have a pneumonia. The daughter also reports that he has had a decreased appetite over the last few days. He denies facial pain, neck pain, chest pain, abdominal pain, vomiting, dysuria, diarrhea. He is a social smoker. Allergies: NKDA Medications: See MAR ROS Const: As per HPI Eyes : No pain discharge or redness or change in visual acuity ENT: No pain, sore throat, congestion, congestion, dysphagia or discharge Respiratory: As per HPI Cardiovascular: No chest pain, palpitation, PND, or edema GI : no change in appetite, abdominal pain, nausea, vomiting, diarrhea, constipation, or change in the color his stool Genitourinary: No dysuria, hematuria, flank pain , discharge or CVA tenderness Musculoskeletal: No joint pain, back pain, neck pain, restricted range of motion in neck or joints Skin: No rash, bruising or hives Neuro: No headache, dizziness, syncope, seizure, focal weakness Endocrine: No polyuria, polydipsia, temperature intolerance Psych: No hallucination, depression, anxiety or suicidal ideation PMH/Family/Social Past Medical History Dyslipidemia, hypertension, CAD, history of CHF, Parkinson disease Medications Current Medications Azithromycin 250 ml @ 250 mls/hr ONCE ONCE IVPB ; Start 08/24/18 at 19:30; Stop 08/24/18 at 20:29 Hydralazine HCl (Apresoline) 10 mg Q4H PRN IV ELEVATED BLOOD PRESSURE; Start 08/24/18 at 20:00 Methylprednisolone Sodium Succinate (Solu-Medrol) 125 mg ONCE ONCE IV ; Start 08/24/18 at 20:30; Stop 08/24/18 at 20:31; Status UNV Coded Allergies: No Known Allergy (Unverified , 08/24/18) Past Surgical History Past surgical history: CABG Past Surgical Hx: angioplasty, coronary bypass surgery Family History Significant Family History: no pertinent family hx Social History Smoking Status: Current every day smoker Exam/Review of Systems Vital Signs Vitals Vital Signs Date Temp Pulse Resp B/P (MAP) Pulse Ox O2 O2 Flow FiO2 Time Delivery Rate 08/24/18 40 37 161/109 98 Nasal 4.0 19:00 (126) Cannula 08/24/18 98.6 15:56 Exam Exam General: Patient is currently lying in bed in no acute distress HEENT: Atraumatic, normocephalic. The pupils are equal, round and reactive. Extraocular motor are intact Neck: Supple with full range of motion. No rigidity or meningismus Chest: Nontender Lungs: Coarse breath sounds bilaterally, mild wheezing, nonlabored breathing Heart: Sinus tachycardia. Abdomen: Soft , nontender, nondistended , bowel sounds are present. No guarding no rebound tenderness , No masses or organomegaly. No costovertebral temporal angle mass Extremities: Normal to inspection, no edema no cyanosis Neurologic: Normal mental status, speech normal, cranial nerves II through XII are intact, motor and sensory are intact, Additional Comments EKG: Read by emergency physician Rate/Rhythm: Normal Sinus Rhythm 97 beats/min QRS, ST, T-waves: No ST elevation, no T inversion, left atrial enlargement, inferior Q waves, artifacts Impression: Abnormal EKG PROCEDURE: CT Angiography Chest With Intravenous Contrast CLINICAL INDICATION: Shortness of breath. TECHNIQUE: Axial computed tomographic angiography images of the chest with intravenous contrast using pulmonary embolism protocol. Sagittal and coronal reformatted images were created and reviewed. CTDIvol (mGy) = 28.17; total DLP (mGy-cm) = 354.36. This CT exam was performed using one or more of the following dose reduction techniques: automated exposure control, adjustment of the mA and/or kV according to patient size, and/or use of iterative reconstruction technique. DICOM images are available. MIP reconstructed images were created and reviewed. CONTRAST: 100 mL of Visipaque 320 was administered intravenously. COMPARISON: None FINDINGS: LIMITATIONS: The study is limited by respiratory motion artifact. PULMONARY ARTERIES: The pulmonary arteries are unremarkable. No pulmonary embolism demonstrated, within the technical limits of the exam. AORTA: The thoracic aorta is atherosclerotic. No aneurysm or dissection. LUNGS: Multiple calcified pulmonary granulomata noted throughout the right lung. Areas of fibrosis are noted. There is traction bronchiectasis seen in the right upper lobe. Dependent atelectasis at the lung bases, right worse than left. No mass. PLEURAL SPACE: Unremarkable. No significant effusion. No pneumothorax. HEART: Unremarkable. No cardiomegaly. No significant pericardial effusion. No evidence of RV dysfunction. BONES/JOINTS: Status post median sternotomy. Degenerative spine changes are noted. No acute fracture. No dislocation. SOFT TISSUES: Unremarkable. LYMPH NODES: Unremarkable. No enlarged lymph nodes. LIVER: Calcified granuloma right lobe of the liver. IMPRESSION: 1. The study is limited by respiratory motion artifact. 2. The pulmonary arteries are unremarkable. No pulmonary embolism demonstrated, within the technical limits of the exam. 3. The thoracic aorta is atherosclerotic. No aneurysm or dissection. 4. Multiple calcified pulmonary granulomata noted throughout the right lung. Areas of fibrosis are noted. There is traction bronchiectasis seen in the right upper lobe. Dependent atelectasis at the lung bases, right worse than left. RPTAT: HS Nicole Javier, Physician Prospect Manager Date Time Electronically viewed and signed by Nicole Javier, Physician Prospect Manager on 08/24/2018 19:09 RmC/ CC: RITA SANTOS MD [id number] PROCEDURE: XR Chest. CLINICAL INDICATION: Chest pain TECHNIQUE: Single frontal view of the chest was obtained. COMPARISON: CR CHEST 07/26/2015 FINDINGS: The heart is within normal limits. The thoracic aorta is calcified. The patient is status post sternotomy. There are chronic right upper lobe calcified granulomas and scarring. There is no focal infiltrate. There is no pleural effusion or pneumothorax. RPTAT: AA IMPRESSION: Chronic right upper lobe calcified granulomas and scarring. Calcified aorta consistent with atherosclerotic disease. .Boogie Hampton MD, MD Date Time Electronically viewed and signed by .Boogie Hampton MD, on 08/24/2018 17:28 .S/ CC: RITA SANTOS MD [id number] RAY VARNER Aug 24, 2018 20:37
[2018-08-24 22:47] VITALS: PULSE 114
[2018-08-24] MEDS: IPRATROPIUM (NEB) 0.5 MG/2.5 ML AMP HHN SCH (23:00)
[2018-08-24] MEDS: LEVALBUTEROL (NEB) 1.25 MG/0.5 ML AMP HHN SCH (23:00)
[2018-08-24 23:30] VITALS: BP 146/69; PULSE 119; RESP 20
[2018-08-24 23:55] VITALS: Ht 165.1 cm; Wt 54.5 kg
[2018-08-25] VITALS (10 sets, daily range): BP systolic 114–137; BP diastolic 56–78; PULSE 76–112; RESP 18–20
[2018-08-25] MEDS ORDERED: LORAZEPAM 2 MG INJ IV ONE
[2018-08-25] MEDS: IPRATROPIUM (NEB) 0.5 MG/2.5 ML AMP HHN SCH ×6 (00:05→20:16)
[2018-08-25] MEDS: LEVALBUTEROL (NEB) 1.25 MG/0.5 ML AMP HHN SCH ×6 (00:05→20:16)
[2018-08-25] MEDS ORDERED: ALBUTEROL/IPRATROPIUM (NEB) 3 ML AMP HHN SCH (01:00)
[2018-08-25] MEDS: PANTOPRAZOLE (EC) 40 MG TAB PO SCH (06:50)
[2018-08-25] MEDS: predniSONE 20 MG TAB PO SCH ×2 (08:25→21:44)
[2018-08-25] MEDS: AMLODIPINE 5 MG TAB PO SCH (08:26)
[2018-08-25] MEDS: CARBIDOPA/LEVODOPA (25/100) TAB PO SCH ×3 (08:31→21:44)
--- NOTE | 2018-08-25 13:32 | PN ---
Date/Time of Note Date/Time of Note DATE: 08/25/18 TIME: 13:27 Assessment/Plan VTE Prophylaxis Risk score (from Ns)>0 risk: 5 SCD applied (from [facility]): Yes Pharmacological prophylaxis: heparin Lines/Catheters IV Catheter Type (from [facility]): Saline Lock Urinary Cath still in place: No Assessment/Plan Assessment/Plan 1. COPD exacerbation, improving, neb prn, antibiotics and prednisone 2. Acute renal failure, improved 3. HTN, controlled 4. Dyslipidemia, on statin 5. Parkinson's disease: Continue home meds 6. DVT GI prophylaxis: heparin Result Diagram: 08/25/18 0603 08/25/18 0603 Results 24hrs Laboratory Tests Test 08/24/18 17:01 08/24/18 17:12 08/24/18 19:40 08/24/18 19:48 POC Venous 1.8 Lactate White Blood 10.8 # Count Red Blood Count 4.10 L Hemoglobin 12.4 L Hematocrit 37.1 L Mean Corpuscular 90.5 Volume Mean Corpuscular 30.2 Hemoglobin Mean Corpuscular 33.4 Hemoglobin Lelo nt Red Cell 13.0 Distribution Width Platelet Count 228 Mean Platelet 11.6 H Volume Immature 0.900 H Granulocytes % Neutrophils % Segmented 51 Neutrophils % (Manual) Band Neutrophils 12 H % (Manual) Lymphocytes % Lymphocytes % 16 (Manual) Monocytes % Monocytes % 21 H (Manual) Eosinophils % Basophils % Nucleated Red 0.0 Blood Cells % Immature 0.100 H Granulocytes # Neutrophils # Neutrophils # 5.6 (Manual) Band Neutrophils 1.2 H # Lymphocytes 1.7 (Manual) Lymphocytes # Monocytes # Monocytes # 2.2 H (Manual) Eosinophils # Basophils # Nucleated Red Blood Cells # Platelet NORMAL Estimate Poikilocytosis 1+ Prothrombin Time 12.3 Prothrombin Time 1.0 Ratio INR 0.90 International Normalized Ratio Activated 35.3 H Partial Thrombop last Time Sodium Level 136 Potassium Level 4.9 Chloride Level 100 Carbon Dioxide 22 Level Anion Gap 14 H Blood Urea 34 H Nitrogen Creatinine 1.26 H Est Glomerular Filtrat Rate mL/min Glucose Level 98 Calcium Level 9.5 Total Bilirubin 0.6 Direct Bilirubin 0.00 Indirect 0.6 Bilirubin Aspartate Amino 26 Transf (AST/SGOT ) Alanine 6 L Aminotransferase (ALT/SGPT) Alkaline 151 H Phosphatase Troponin I < 0.012 Total Protein 8.7 H Albumin 4.1 Globulin 4.60 H Albumin/Globulin 0.89 Ratio Urine Color [place] Urine Clarity SLIGHTLY CLOUDY A Urine pH 5.0 Urine Specific 1.042 H [place] Urine Ketones NEGATIVE Urine Nitrite NEGATIVE Urine Bilirubin NEGATIVE Urine 2+ H Urobilinogen Urine Leukocyte NEGATIVE Esterase Urine 6 H Microscopic RBC Urine 4 Microscopic WBC Urine Squamous FEW Epithelial Cells Urine Hemoglobin NEGATIVE Urine Glucose NEGATIVE Urine Total 2+ H Protein Blood Gas Blood arterial Specimen Source Arterial Blood 08/24/2018 9:54: Date Drawn 36 PM Arterial Blood 7.335 L pH (Temp corrected) Arterial Blood 40.7 pCO2 (Temp correct) Arterial Blood 71.7 L pO2 (Temp corrected) Arterial Blood 21.2 L HCO3 Arterial Blood -4.3 L Base Excess Arterial Blood 93.1 L Oxygen Saturatio n Nelson Test ACCEPTAB Arterial Blood Right Radial Gas Puncture Site Arterial 0.2 Blood Carboxyhem oglobin Arterial Blood 0.3 Methemoglobin Blood Gas A-a O2 72.7 H Differential Oxyhemoglobin 92.6 L Percent Blood Gas 37.0 Temperature Blood Gas NASAL CANNULA Modality FiO2 27.0 Blood Gas AA Notified Whom Blood Gas 08/24/2018 10:07 Notified Time :24 PM Test 08/24/18 22:27 08/25/18 06:03 Lactic Acid 2.0 Level White Blood 6.8 # Count Red Blood Count 3.51 L Hemoglobin 10.6 L Hematocrit 31.8 L Mean Corpuscular 90.6 Volume Mean Corpuscular 30.2 Hemoglobin Mean Corpuscular 33.3 Hemoglobin Lelo nt Red Cell 12.8 Distribution Width Platelet Count 234 Mean Platelet 11.0 H Volume Immature 1.000 H Granulocytes % Neutrophils % 88.8 H Lymphocytes % 5.6 L Monocytes % 4.3 Eosinophils % 0.0 Basophils % 0.3 Nucleated Red 0.0 Blood Cells % Immature 0.070 H Granulocytes # Neutrophils # 6.0 Lymphocytes # 0.4 L Monocytes # 0.3 Eosinophils # 0.0 Basophils # 0.0 Nucleated Red 0.0 Blood Cells # Sodium Level 139 Potassium Level 3.8 Chloride Level 103 Carbon Dioxide 24 Level Anion Gap 12 Blood Urea 24 H Nitrogen Creatinine 0.93 Est Glomerular Filtrat Rate mL/min Glucose Level 165 Hemoglobin A1c 5.2 Calcium Level 8.8 Magnesium Level 1.5 L Total Bilirubin 0.2 Direct Bilirubin 0.00 Indirect 0.2 Bilirubin Aspartate Amino 19 Transf (AST/SGOT ) Alanine < 6 L Aminotransferase (ALT/SGPT) Alkaline 130 H Phosphatase Total Protein 7.1 # Albumin 3.3 Globulin 3.80 H Albumin/Globulin 0.86 Ratio Triglycerides 98 Level Cholesterol 106 Level LDL Cholesterol, 62 Calculated HDL Cholesterol 24 L Cholesterol/HDL 4.4 Ratio Thyroid 0.057 L Stimulating Hormone (TSH) Subjective 24 Hr Interval Summary Free Text/Dictation less shortness of breath today. No fever, no sputum Exam/Review of Systems Exam Vitals Vital Signs Date Temp Pulse Resp B/P (MAP) Pulse Ox O2 O2 Flow FiO2 Time Delivery Rate 08/25/18 85 12:14 08/25/18 98.0 18 137/78 95 Nasal 11:10 (97) Cannula 08/25/18 3.0 09:33 Intake and Output 08/24/18 08/24/18 08/25/18 1414:59 22:59 06:59 IntakeIntake Total 2050 ml BalanceBalance 2050 ml Constitutional: alert, oriented, well developed Psych: no complaints, nl mood/affect Head: normocephalic, atraumatic Eyes: nl conjunctiva, EOMI, nl lids, PERRL ENMT: nl external ears & nose, nl lips & teeth, nl nasal mucosa & septum Neck: non-tender Respiratory: crackles/rales Cardiovascular: regular rate and rhythm, nl pulses Gastrointestinal: soft, nl liver, spleen Musculoskeletal: nl extremities to inspection Extremities: normal pulses; No calf tenderness, No cyanosis, No clubbing, No edema, No pitting pedal edema, No palpable cord, No tenderness, No other 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, nl mental status, nl speech, nl strength Results Results 24hrs Laboratory Tests Test 08/24/18 17:01 08/24/18 17:12 08/24/18 19:40 08/24/18 19:48 POC Venous 1.8 Lactate White Blood 10.8 # Count Red Blood Count 4.10 L Hemoglobin 12.4 L Hematocrit 37.1 L Mean Corpuscular 90.5 Volume Mean Corpuscular 30.2 Hemoglobin Mean Corpuscular 33.4 Hemoglobin Lelo nt Red Cell 13.0 Distribution Width Platelet Count 228 Mean Platelet 11.6 H Volume Immature 0.900 H Granulocytes % Neutrophils % Segmented 51 Neutrophils % (Manual) Band Neutrophils 12 H % (Manual) Lymphocytes % Lymphocytes % 16 (Manual) Monocytes % Monocytes % 21 H (Manual) Eosinophils % Basophils % Nucleated Red 0.0 Blood Cells % Immature 0.100 H Granulocytes # Neutrophils # Neutrophils # 5.6 (Manual) Band Neutrophils 1.2 H # Lymphocytes 1.7 (Manual) Lymphocytes # Monocytes # Monocytes # 2.2 H (Manual) Eosinophils # Basophils # Nucleated Red Blood Cells # Platelet NORMAL Estimate Poikilocytosis 1+ Prothrombin Time 12.3 Prothrombin Time 1.0 Ratio INR 0.90 International Normalized Ratio Activated 35.3 H Partial Thrombop last Time Sodium Level 136 Potassium Level 4.9 Chloride Level 100 Carbon Dioxide 22 Level Anion Gap 14 H Blood Urea 34 H Nitrogen Creatinine 1.26 H Est Glomerular Filtrat Rate mL/min Glucose Level 98 Calcium Level 9.5 Total Bilirubin 0.6 Direct Bilirubin 0.00 Indirect 0.6 Bilirubin Aspartate Amino 26 Transf (AST/SGOT ) Alanine 6 L Aminotransferase (ALT/SGPT) Alkaline 151 H Phosphatase Troponin I < 0.012 Total Protein 8.7 H Albumin 4.1 Globulin 4.60 H Albumin/Globulin 0.89 Ratio Urine Color [place] Urine Clarity SLIGHTLY CLOUDY A Urine pH 5.0 Urine Specific 1.042 H [place] Urine Ketones NEGATIVE Urine Nitrite NEGATIVE Urine Bilirubin NEGATIVE Urine 2+ H Urobilinogen Urine Leukocyte NEGATIVE Esterase Urine 6 H Microscopic RBC Urine 4 Microscopic WBC Urine Squamous FEW Epithelial Cells Urine Hemoglobin NEGATIVE Urine Glucose NEGATIVE Urine Total 2+ H Protein Blood Gas Blood arterial Specimen Source Arterial Blood 08/24/2018 9:54: Date Drawn 36 PM Arterial Blood 7.335 L pH (Temp corrected) Arterial Blood 40.7 pCO2 (Temp correct) Arterial Blood 71.7 L pO2 (Temp corrected) Arterial Blood 21.2 L HCO3 Arterial Blood -4.3 L Base Excess Arterial Blood 93.1 L Oxygen Saturatio n [place] Test ACCEPTAB Arterial Blood Right Radial Gas Puncture Site Arterial 0.2 Blood Carboxyhem oglobin Arterial Blood 0.3 Methemoglobin Blood Gas A-a O2 72.7 H Differential Oxyhemoglobin 92.6 L Percent Blood Gas 37.0 Temperature Blood Gas NASAL CANNULA Modality FiO2 27.0 Blood Gas AA Notified Whom Blood Gas 08/24/2018 10:07 Notified Time :24 PM Test 08/24/18 22:27 08/25/18 06:03 Lactic Acid 2.0 Level White Blood 6.8 # Count Red Blood Count 3.51 L Hemoglobin 10.6 L Hematocrit 31.8 L Mean Corpuscular 90.6 Volume Mean Corpuscular 30.2 Hemoglobin Mean Corpuscular 33.3 Hemoglobin Lelo nt Red Cell 12.8 Distribution Width Platelet Count 234 Mean Platelet 11.0 H Volume Immature 1.000 H Granulocytes % Neutrophils % 88.8 H Lymphocytes % 5.6 L Monocytes % 4.3 Eosinophils % 0.0 Basophils % 0.3 Nucleated Red 0.0 Blood Cells % Immature 0.070 H Granulocytes # Neutrophils # 6.0 Lymphocytes # 0.4 L Monocytes # 0.3 Eosinophils # 0.0 Basophils # 0.0 Nucleated Red 0.0 Blood Cells # Sodium Level 139 Potassium Level 3.8 Chloride Level 103 Carbon Dioxide 24 Level Anion Gap 12 Blood Urea 24 H Nitrogen Creatinine 0.93 Est Glomerular Filtrat Rate mL/min Glucose Level 165 Hemoglobin A1c 5.2 Calcium Level 8.8 Magnesium Level 1.5 L Total Bilirubin 0.2 Direct Bilirubin 0.00 Indirect 0.2 Bilirubin Aspartate Amino 19 Transf (AST/SGOT ) Alanine < 6 L Aminotransferase (ALT/SGPT) Alkaline 130 H Phosphatase Total Protein 7.1 # Albumin 3.3 Globulin 3.80 H Albumin/Globulin 0.86 Ratio Triglycerides 98 Level Cholesterol 106 Level LDL Cholesterol, 62 Calculated HDL Cholesterol 24 L Cholesterol/HDL 4.4 Ratio Thyroid 0.057 L Stimulating Hormone (TSH) Medications Medication Current Medications Hydralazine HCl (Apresoline) 10 mg Q4H PRN IV ELEVATED BLOOD PRESSURE Last administered on 08/24/18at 23:00; Admin Dose 10 MG; Start 08/24/18 at 20:00 IV Flush (NS 3 ml) 3 ml PER PROTOCOL IV ; Start 08/24/18 at 20:30 Ondansetron HCl (Zofran Inj) 4 mg Q6H PRN IV NAUSEA/VOMITING; Start 08/24/18 at 20:30 Acetaminophen (Tylenol Tab) 650 mg Q6H PRN PO .PAIN 1-3 OR TEMP; Start 08/24/18 at 20:30 Docusate Sodium (Colace) 100 mg Q12H PRN PO .CONSTIPATION; Start 08/24/18 at 20:30 Bisacodyl (Dulcolax) 5 mg DAILY PRN PO .CONSTIPATION; Start 08/24/18 at 20:30 Levalbuterol (Xopenex Neb) 1.25 mg Q4H RESP THERAPY HHN Last administered on 08/25/18 09:33; Admin Dose 1.25 MG; Start 08/24/18 at 23:00 Ipratropium [place] (Atrovent 0.02% (Neb)) 0.5 mg Q4H RESP THERAPY HHN Last administered on 08/25/18 09:33; Admin Dose 0.5 MG; Start 08/24/18 at 23:00 Amlodipine Besylate (Norvasc) 5 mg DAILY PO Last administered on 08/25/18 08:26; Admin Dose 5 MG; Start 08/25/18 at 09:00 Carbidopa/Levodopa (Sinemet (/ )) 1 tab TID PO Last administered on 08/25/18 08:31; Admin Dose 1 TAB; Start 08/25/18 at 09:00 Atorvastatin Calcium (Lipitor) 40 mg DAILY@21 PO ; Start 08/25/18 at 21:00 Ceftriaxone Sodium 50 ml @ 100 mls/hr Q24H IVPB ; Start 08/25/18 at 18:00 Azithromycin 250 ml @ 250 mls/hr Q24H IVPB ; Start 08/25/18 at 18:00 Prednisone (Prednisone) 20 mg BID PO Last administered on 08/25/18 08:25; Ad min Dose 20 MG; Start 08/25/18 at 09:00; Stop 08/30/18 at 08:59 Pantoprazole (Protonix Tab) 40 mg DAILY@06 PO Last administered on 08/25/18 06:50; Admin Dose 40 MG; Start 08/25/18 at 06:00 ARAMIS YATES MD Aug 25, 2018 13:32
--- NOTE | 2018-08-25 14:52 | CONS ---
Assessment/Plan Assessment/Plan Hospital Course (Demo Recall) Respiratory distress Likely COPD exacerbation Bradycardia on beta-juan Hypertension CAD with history of CABG Parkinson's -Patient presents with fevers and chills, cough and shortness of breath for 3 days. Feels better after inpatient medications -ECG with no significant ischemic abnormalities, first set of cardiac enzymes are negative. Will obtain second set. Check echocardiogram. -Review of records, patient with initial bradycardia, on the telemetry floor, no bradycardia on the monitors. Beta-juan has been held. -We will order magnesium supplementation Consultation Date/Type/Reason Admit Date/Time Type of Consult Cardiology Reason for Consultation Shortness of breath and bradycardia Date/Time of Note DATE: 08/25/18 TIME: 14:42 Hx of Present Illness This is an 78-year-old male with past medical history of COPD, hypertension, Parkinson's who presents with fevers and chills, cough and shortness of breath over the past 3 days. He treated him to medical chart and someone from the patient. Denies any chest pain, dizziness. He is coughing still. He feels better now after medications 12 point review of systems was performed with all pertinent positives and negatives mentioned above and all else is negative Past Medical History COPD Hypertension Parkinson's Home Meds Reported Medications Carbidopa/Levodopa (Carbidopa-Levodopa 25-100 Tab) 1 Each Tablet, 1 EACH PO TID, TAB 08/24/18 Olmesartan/Hydrochlorothiazide (Olmesartan-Hctz 20-12.5 mg Tab) 1 Each Tablet, 1 EACH PO DAILY, TAB 08/24/18 Amlodipine Besylate* (Norvasc*) 5 Mg Tablet, 5 MG PO DAILY, TAB 08/24/18 Propranolol Hcl* (Propranolol Hcl*) 20 Mg Tablet, 20 MG PO BID, TAB 08/24/18 Rosuvastatin Calcium* (Crestor*) 10 Mg Tablet, 10 MG PO QHS, #30 TAB 08/24/18 Clonidine Hcl* (Clonidine Hcl*) 0.1 Mg Tab, 0.1 MG PO NEEDED PRN for HTN, TAB 08/24/18 Discontinued Reported Medications Simvastatin* (Zocor*) 40 Mg Tablet, 40 MG PO QHS, #30 TAB 07/26/15 Aspirin* (Aspirin* EC) 81 Mg Tablet.dr, 81 MG PO DAILY, TAB 07/26/15 Discontinued Scripts Methylprednisolone* (Medrol* DOSE PACK) 4 Mg/Dose-Pack Tab.ds.pk, 4 MG PO . DIRECTED, #1 PACKET Prov:PEREZ SINGH 04/25/17 Azithromycin* (Azithromycin*) 250 Mg Tablet, 250 MG PO DAILY, #4 TAB Prov:PEREZ SINGH 04/25/17 Furosemide* (Lasix*) 20 Mg Tablet, 20 MG PO DAILY for 30 Days, TAB Prov:PEREZ SINGH 04/25/17 Lisinopril* (Lisinopril*) 5 Mg Tablet, 5 MG PO DAILY for 30 Days, #30 TAB Prov:PEREZ SINGH 04/25/17 Tamsulosin Hcl* (Flomax*) 0.4 Mg Cap.er.24h, 0.4 MG PO HS for 30 Days, #30 CAP Prov:PEREZ SINGH 04/25/17 Albuterol Sulfate* (Ventolin HFA*) 18 Gm Hfa.aer.ad, 2 PUFF INHALATION Q4H, #1 INHALER Prov:ARIK BERG 07/28/15 Salmeterol Xinaf/Fluticasone* (Advair*) 250-50 Diskus Inhaler, 1 INH INHALATION BID for 30 Days, INHALER Prov:REGARIK SANTIZO 07/28/15 Clonidine Hcl* (Clonidine Hcl*) 0.1 Mg Tab, 0.1 MG PO Q4H PRN for sbp>160, #30 TAB Prov:REGARIK SANTIZO 07/28/15 Hydralazine Hcl* (Hydralazine Hcl*) 25 Mg Tab, 25 MG PO Q8 for 30 Days, TAB Prov:REGARIK SANTIZO 07/28/15 Atenolol (Tenormin) 25 Mg Tab, 12.5 MG PO BID for 30 Days, TAB Prov:REGARIK SANTIZO 07/28/15 Amlodipine Besylate* (Norvasc*) 5 Mg Tab, 5 MG PO BID for 30 Days, TAB Prov:ARIK BERG 07/28/15 Medications Current Medications Hydralazine HCl (Apresoline) 10 mg Q4H PRN IV ELEVATED BLOOD PRESSURE Last administered on 08/24/18at 23:00; Admin Dose 10 MG; Start 08/24/18 at 20:00 IV Flush (NS 3 ml) 3 ml PER PROTOCOL IV ; Start 08/24/18 at 20:30 Ondansetron HCl (Zofran Inj) 4 mg Q6H PRN IV NAUSEA/VOMITING; Start 08/24/18 at 20:30 Acetaminophen (Tylenol Tab) 650 mg Q6H PRN PO .PAIN 1-3 OR TEMP; Start 08/24/18 at 20:30 Docusate Sodium (Colace) 100 mg Q12H PRN PO .CONSTIPATION; Start 08/24/18 at 20:30 Bisacodyl (Dulcolax) 5 mg DAILY PRN PO .CONSTIPATION; Start 08/24/18 at 20:30 Levalbuterol (Xopenex Neb) 1.25 mg Q4H RESP THERAPY HHN Last administered on 08/25/18 14:09; Admin Dose 1.25 MG; Start 08/24/18 at 23:00 Ipratropium [place] (Atrovent 0.02% (Neb)) 0.5 mg Q4H RESP THERAPY HHN Last administered on 08/25/18 14:10; Admin Dose 0.5 MG; Start 08/24/18 at 23:00 Amlodipine Besylate (Norvasc) 5 mg DAILY PO Last administered on 08/25/18 08:26; Admin Dose 5 MG; Start 08/25/18 at 09:00 Carbidopa/Levodopa (Sinemet (25/ 100)) 1 tab TID PO Last administered on 08/25/18 14:15; Admin Dose 1 TAB; Start 08/25/18 at 09:00 Atorvastatin Calcium (Lipitor) 40 mg DAILY@21 PO ; Start 08/25/18 at 21:00 Ceftriaxone Sodium 50 ml @ 100 mls/hr Q24H IVPB ; Start 08/25/18 at 18:00 Azithromycin 250 ml @ 250 mls/hr Q24H IVPB ; Start 08/25/18 at 18:00 Prednisone (Prednisone) 20 mg BID PO Last administered on 08/25/18 08:25; Admin Dose 20 MG; Start 08/25/18 at 09:00; Stop 08/30/18 at 08:59 Pantoprazole (Protonix Tab) 40 mg DAILY@06 PO Last administered on 08/25/18at 06:50; Admin Dose 40 MG; Start 08/25/18 at 06:00 Heparin Sodium (Porcine) (Heparin (5000 Units/1ml)) 5,000 unit BID SC ; Start 08/25/18 at 21:00 Allergies: Coded Allergies: No Known Allergy (Unverified , 08/24/18) Past Surgical History Past Surgical Hx: angioplasty, coronary bypass surgery Social History Smoking Status: Current every day smoker Exam/Review of Systems Vital Signs Vitals Vital Signs Date Temp Pulse Resp B/P (MAP) Pulse Ox O2 O2 Flow FiO2 Time Delivery Rate 08/25/18 78 20 95 Nasal 3.0 14:10 Cannula 08/25/18 98.0 137/78 11:10 (97) Intake and Output 08/24/18 08/24/18 08/25/18 1515:00 23:00 07:00 IntakeIntake Total 2050 ml BalanceBalance 2050 ml Exam Constitutional: alert, oriented (Receiving nebulizer treatment, no apparent distress) Head: normocephalic Respiratory: other (Coarse breath sounds bilaterally, mild wheeze) Cardiovascular: regular rate and rhythm (S1-S2 heard) Gastrointestinal: soft, non-tender, bowel sounds Extremities: other (No significant edema) Labs Result Diagram: 08/25/18 0603 08/25/18 0603 Results 24hrs Laboratory Tests Test 08/24/18 17:01 08/24/18 17:12 08/24/18 19:40 08/24/18 19:48 POC Venous 1.8 Lactate White Blood 10.8 # Count Red Blood Count 4.10 L Hemoglobin 12.4 L Hematocrit 37.1 L Mean Corpuscular 90.5 Volume Mean Corpuscular 30.2 Hemoglobin Mean Corpuscular 33.4 Hemoglobin Lelo nt Red Cell 13.0 Distribution Width Platelet Count 228 Mean Platelet 11.6 H Volume Immature 0.900 H Granulocytes % Neutrophils % Segmented 51 Neutrophils % (Manual) Band Neutrophils 12 H % (Manual) Lymphocytes % Lymphocytes % 16 (Manual) Monocytes % Monocytes % 21 H (Manual) Eosinophils % Basophils % Nucleated Red 0.0 Blood Cells % Immature 0.100 H Granulocytes # Neutrophils # Neutrophils # 5.6 (Manual) Band Neutrophils 1.2 H # Lymphocytes 1.7 (Manual) Lymphocytes # Monocytes # Monocytes # 2.2 H (Manual) Eosinophils # Basophils # Nucleated Red Blood Cells # Platelet NORMAL Estimate Poikilocytosis 1+ Prothrombin Time 12.3 Prothrombin Time 1.0 Ratio INR 0.90 International Normalized Ratio Activated 35.3 H Partial Thrombop last Time Sodium Level 136 Potassium Level 4.9 Chloride Level 100 Carbon Dioxide 22 Level Anion Gap 14 H Blood Urea 34 H Nitrogen Creatinine 1.26 H Est Glomerular Filtrat Rate mL/min Glucose Level 98 Calcium Level 9.5 Total Bilirubin 0.6 Direct Bilirubin 0.00 Indirect 0.6 Bilirubin Aspartate Amino 26 Transf (AST/SGOT ) Alanine 6 L Aminotransferase (ALT/SGPT) Alkaline 151 H Phosphatase Troponin I < 0.012 Total Protein 8.7 H Albumin 4.1 Globulin 4.60 H Albumin/Globulin 0.89 Ratio Urine Color [place] Urine Clarity SLIGHTLY CLOUDY A Urine pH 5.0 Urine Specific 1.042 H [place] Urine Ketones NEGATIVE Urine Nitrite NEGATIVE Urine Bilirubin NEGATIVE Urine 2+ H Urobilinogen Urine Leukocyte NEGATIVE Esterase Urine 6 H Microscopic RBC Urine 4 Microscopic WBC Urine Squamous FEW Epithelial Cells Urine Hemoglobin NEGATIVE Urine Glucose NEGATIVE Urine Total 2+ H Protein Blood Gas Blood arterial Specimen Source Arterial Blood 08/24/2018 9:54: Date Drawn 36 PM Arterial Blood 7.335 L pH (Temp corrected) Arterial Blood 40.7 pCO2 (Temp correct) Arterial Blood 71.7 L pO2 (Temp corrected) Arterial Blood 21.2 L HCO3 Arterial Blood -4.3 L Base Excess Arterial Blood 93.1 L Oxygen Saturatio n Nelson Test ACCEPTAB Arterial Blood Right Radial Gas Puncture Site Arterial 0.2 Blood Carboxyhem oglobin Arterial Blood 0.3 Methemoglobin Blood Gas A-a O2 72.7 H Differential Oxyhemoglobin 92.6 L Percent Blood Gas 37.0 Temperature Blood Gas NASAL CANNULA Modality FiO2 27.0 Blood Gas AA Notified Whom Blood Gas 08/24/2018 10:07 Notified Time :24 PM Test 08/24/18 22:27 08/25/18 06:03 Lactic Acid 2.0 Level White Blood 6.8 # Count Red Blood Count 3.51 L Hemoglobin 10.6 L Hematocrit 31.8 L Mean Corpuscular 90.6 Volume Mean Corpuscular 30.2 Hemoglobin Mean Corpuscular 33.3 Hemoglobin Lelo nt Red Cell 12.8 Distribution Width Platelet Count 234 Mean Platelet 11.0 H Volume Immature 1.000 H Granulocytes % Neutrophils % 88.8 H Lymphocytes % 5.6 L Monocytes % 4.3 Eosinophils % 0.0 Basophils % 0.3 Nucleated Red 0.0 Blood Cells % Immature 0.070 H Granulocytes # Neutrophils # 6.0 Lymphocytes # 0.4 L Monocytes # 0.3 Eosinophils # 0.0 Basophils # 0.0 Nucleated Red 0.0 Blood Cells # Sodium Level 139 Potassium Level 3.8 Chloride Level 103 Carbon Dioxide 24 Level Anion Gap 12 Blood Urea 24 H Nitrogen Creatinine 0.93 Est Glomerular Filtrat Rate mL/min Glucose Level 165 Hemoglobin A1c 5.2 Calcium Level 8.8 Magnesium Level 1.5 L Total Bilirubin 0.2 Direct Bilirubin 0.00 Indirect 0.2 Bilirubin Aspartate Amino 19 Transf (AST/SGOT ) Alanine < 6 L Aminotransferase (ALT/SGPT) Alkaline 130 H Phosphatase Total Protein 7.1 # Albumin 3.3 Globulin 3.80 H Albumin/Globulin 0.86 Ratio Triglycerides 98 Level Cholesterol 106 Level LDL Cholesterol, 62 Calculated HDL Cholesterol 24 L Cholesterol/HDL 4.4 Ratio Thyroid 0.057 L Stimulating Hormone (TSH) Imaging Imaging ECG sinus rhythm at 97 bpm, inferior Q waves, QRS 90 ms, nonspecific ST abnormalities Medications Medications Current Medications Hydralazine HCl (Apresoline) 10 mg Q4H PRN IV ELEVATED BLOOD PRESSURE Last administered on 08/24/18at 23:00; Admin Dose 10 MG; Start 08/24/18 at 20:00 IV Flush (NS 3 ml) 3 ml PER PROTOCOL IV ; Start 08/24/18 at 20:30 Ondansetron HCl (Zofran Inj) 4 mg Q6H PRN IV NAUSEA/VOMITING; Start 08/24/18 at 20:30 Acetaminophen (Tylenol Tab) 650 mg Q6H PRN PO .PAIN 1-3 OR TEMP; Start 08/24/18 at 20:30 Docusate Sodium (Colace) 100 mg Q12H PRN PO .CONSTIPATION; Start 08/24/18 at 20 :30 Bisacodyl (Dulcolax) 5 mg DAILY PRN PO .CONSTIPATION; Start 08/24/18 at 20:30 Levalbuterol (Xopenex Neb) 1.25 mg Q4H RESP THERAPY HHN Last administered on 08/25/18at 14:09; Admin Dose 1.25 MG; Start 08/24/18 at 23:00 Ipratropium [place] (Atrovent 0.02% (Neb)) 0.5 mg Q4H RESP THERAPY HHN Last administered on 08/25/18at 14:10; Admin Dose 0.5 MG; Start 08/24/18 at 23:00 Amlodipine Besylate (Norvasc) 5 mg DAILY PO Last administered on 08/25/18at 08:26; Admin Dose 5 MG; Start 08/25/18 at 09:00 Carbidopa/Levodopa (Sinemet (25/ 100)) 1 tab TID PO Last administered on 08/25/18at 14:15; Admin Dose 1 TAB; Start 08/25/18 at 09:00 Atorvastatin Calcium (Lipitor) 40 mg DAILY@21 PO ; Start 08/25/18 at 21:00 Ceftriaxone Sodium 50 ml @ 100 mls/hr Q24H IVPB ; Start 08/25/18 at 18:00 Azithromycin 250 ml @ 250 mls/hr Q24H IVPB ; Start 08/25/18 at 18:00 Prednisone (Prednisone) 20 mg BID PO Last administered on 08/25/18at 08:25; Admin Dose 20 MG; Start 08/25/18 at 09:00; Stop 08/30/18 at 08:59 Pantoprazole (Protonix Tab) 40 mg DAILY@06 PO Last administered on 08/25/18at 06:50; Admin Dose 40 MG; Start 08/25/18 at 06:00 Heparin Sodium (Porcine) (Heparin (5000 Units/1ml)) 5,000 unit BID SC ; Start 08/25/18 at 21:00 Kennedy Ignacio DO Aug 25, 2018 14:52
[2018-08-25] MEDS ORDERED: MAGNESIUM SULFATE 2 GM/50 ML 50 ML IVPB ONE (15:00)
--- NOTE | 2018-08-25 15:25 | RADRPT ---
Echocardiogram Report Patient Name: MONIK DOUGHERTYRPatient ID: [id number] : 1940 (78y 4m)Study Date: 08/25/2018 7:06:05 AM Gender: MAccession #: [id number] Tech: Edgar Vital [facility] Location: [facility] [place] Ref.Physician: RAY VARNER Height(Cm): BSA: Weight(Kg): Quality: AdequateAccount #: Procedures: Echocardiographic Report: Transthoracic echocardiogram with complete 2D, M-Mode, and doppler examination. Indications: Bradycardia. Measurements: 2D/M Mode Doppler Measurement Value Normal Range Measurement Value Normal Range LVIDd 2D 4.1 [ 4.2 - 5.8 ] cm MELYSSA VTI 1.7 [ 2.0 - 4.0 ] cm2 LVIDs 2D 2.6 [ 2.5 - 4.0 ] cm AV Mean Delbert 1.4 [ 70.0 - 90.0 ] cm/sec LVPWd 2D 1.2 [ 0.6 - 1.0 ] cm AV Mean PG 10.0 [ 2.0 - 4.0 ] mmHg IVSd 2D 1.2 [ 0.6 - 1.0 ] cm AV VTI 46.1 cm AoR Diam 2D 3.2 [ 2.6 - 3.4 ] cm LVOT Mean Delbert 0.7 [ 60.0 - 80.0 ] cm/sec EDV 2D 73.4 [ 62.0 - 150.0 ] ml LVOT Mean PG 2.0 [ 1.0 - 3.0 ] mmHg ESV 2D 25.3 [ 21.0 - 61.0 ] ml LVOT Peak Delbert 1.0 [ 70.0 - 110.0 ] cm/sec EF 2D 65.5 [ 52.0 - 72.0 ] percent LVOT Peak PG 4.0 [ 2.0 - 6.0 ] mmHg LA Dimen 2D 3.1 [ 3.0 - 4.0 ] cm LVOT VTI 22.8 [ 20.0 - 30.0 ] cm LVOT Diam 2.1 [ 2.3 - 2.9 ] cm MV E Peak Delbert 0.8 [ 60.0 - 130.0 ] cm/sec MV A Peak Delbert 1.1 [ 100.0 - 120.0 ] cm/sec MV E/A 0.8 [ 0.8 - 1.5 ] ratio MV Decel Time 155 [ 104 - 258 ] msec Lat E` Delbert 0.1 [ 10.0 - 15.0 ] cm/sec Lateral E/E` 9.5 [ 1.0 - 2.0 ] ratio MV E/A 0.8 [ 0.8 - 1.5 ] ratio TR Peak Delbert 2.7 [ 100.0 - 280.0 ] cm/sec TR Peak PG 29.0 mmHg RVSP 32.0 [ 10.0 - 36.0 ] mmHg RA Pressure 3.0 mmHg Findings: Left Ventricle: Normal left ventricular systolic function. Normal left ventricular cavity size. Mild concentric left ventricular hypertrophy. Ejection fraction is visually estimated at 60 %. Tissue Doppler/Mitral Doppler indices are consistent with impaired relaxation (Stage I diastolic dysfunction). Right Ventricle: Normal right ventricular size. Normal right ventricular systolic function. Left Atrium: The left atrium is normal in size. Right Atrium: The right atrium is normal in size. Mitral Valve: Mitral valve leaflets appear mildly thickened. Mild mitral annular calcification. Trace mitral regurgitation. Aortic Valve: Aortic valve Max velocity 2.42 m/sec. Max PG 23.50 mmHg. Mean PG 10.00 mmHg. Aortic valve area 1.71 cm2. Aortic sclerosis without significant stenosis. No aortic regurgitation. Tricuspid Valve: Normal appearance of the tricuspid valve. Estimated peak PA systolic pressure 32 mmHg. There is trace tricuspid regurgitation. Pulmonic Valve: Pulmonic valve not well visualized. Pericardium: Normal pericardium with no significant pericardial effusion. Aorta: Normal aortic root. IVC: Normal size and normal respiratory collapse consistent with normal right atrial pressure. Conclusions: Normal left ventricular systolic function. Normal left ventricular cavity size. Mild concentric left ventricular hypertrophy. Ejection fraction is visually estimated at 60 %. Tissue Doppler/Mitral Doppler indices are consistent with impaired relaxation (Stage I diastolic dysfunction). Mitral valve leaflets appear mildly thickened. Mild mitral annular calcification. Trace mitral regurgitation. Aortic valve Max velocity 2.42 m/sec. Max PG 23.50 mmHg. Mean PG 10.00 mmHg. Aortic valve area 1.71 cm2. Aortic sclerosis without significant stenosis. No aortic regurgitation. Normal appearance of the tricuspid valve. Estimated peak PA systolic pressure 32 mmHg. There is trace tricuspid regurgitation. Normal size and normal respiratory collapse consistent with normal right atrial pressure. Electronically Signed By: Adolfo Vasquez 2018-08-25 15:24:08 PDT
[2018-08-25] MEDS: ASPIRIN 81 MG TAB PO SCH (15:26)
[2018-08-25] MEDS: CEFTRIAXONE 1 GM/50 ML (PMX) 50 ML IVPB SCH (17:50)
[2018-08-25] MEDS: AZITHROMYCIN 500MG/NS (PMX) 250 ML IVPB SCH (18:08)
[2018-08-25] MEDS: ATORVASTATIN 40 MG TAB PO SCH (21:44)
[2018-08-25] MEDS: HEPARIN 5,000 UNIT/1 ML VIAL SC SCH (23:01)
[2018-08-26] VITALS (13 sets, daily range): BP systolic 130–181; BP diastolic 62–90; PULSE 60–122; RESP 16–19
[2018-08-26] MEDS: LEVALBUTEROL (NEB) 1.25 MG/0.5 ML AMP HHN SCH ×6 (01:57→20:07)
[2018-08-26] MEDS: IPRATROPIUM (NEB) 0.5 MG/2.5 ML AMP HHN SCH ×6 (01:57→20:07)
[2018-08-26] MEDS: PANTOPRAZOLE (EC) 40 MG TAB PO SCH (05:44)
[2018-08-26] MEDS: CARBIDOPA/LEVODOPA (25/100) TAB PO SCH ×3 (08:36→20:36)
[2018-08-26] MEDS: ASPIRIN 81 MG TAB PO SCH (08:36)
[2018-08-26] MEDS: AMLODIPINE 5 MG TAB PO SCH (08:36)
[2018-08-26] MEDS: predniSONE 20 MG TAB PO SCH (08:36)
[2018-08-26] MEDS: HEPARIN 5,000 UNIT/1 ML VIAL SC SCH ×2 (08:40→20:53)
--- NOTE | 2018-08-26 12:31 | CONS ---
Assessment/Plan Assessment/Plan Hospital Course (Demo Recall) Respiratory distress Likely COPD exacerbation Mildly elevated troponin, trending down Preserved ejection fraction Hypertension CAD with history of CABG Parkinson's -ECG with no significant ischemic abnormalities, troponins minimally elevated and trending down, likely secondary to COPD exacerbation -Spoke to family, patient with no chest pain presented with fevers and chills and cough. -Continue aspirin and statin therapy, restart beta-juan. Titrate antihypertensives as per blood pressure Consultation Date/Type/Reason Admit Date/Time Aug 24, 2018 at 19:27 Initial Consult Date Type of Consult Cardiology Date/Time of Note DATE: 08/26/18 TIME: 12:29 24 HR Interval Summary Free Text/Dictation Denies chest pain, dizziness, palpitations. Shortness of breath has resolved Exam/Review of Systems Vital Signs Vitals Vital Signs Date Temp Pulse Resp B/P (MAP) Pulse Ox O2 O2 Flow FiO2 Time Delivery Rate 08/26/18 97.7 81 19 181/81 98 11:18 (114) 08/26/18 Nasal 2.0 10:01 Cannula 08/26/18 09:55 Intake and Output 08/25/18 08/25/18 08/26/18 1414:59 22:59 06:59 IntakeIntake Total 250 ml 500 ml 600 ml OutputOutput Total 800 ml BalanceBalance 250 ml 500 ml -200 ml Exam Constitutional: alert (No apparent distress, family bedside) Neck: supple Respiratory: other (Coarse breath sounds bilaterally, no wheezing) Cardiovascular: regular rate and rhythm (S1-S2 heard) Gastrointestinal: soft, non-tender, bowel sounds Extremities: other (No significant edema) Labs Result Diagram: 08/26/18 0551 08/26/18 0551 Results 24hrs Laboratory Tests Test 08/25/18 15:00 08/26/18 05:51 08/26/18 10:16 Creatine Kinase 73 140 Creatine Kinase Index 7.7 6.2 Creatinine Kinase MB (Mass) 5.59 H 8.71 H Troponin I 0.206 *H 0.148 *H White Blood Count 18.2 #H Red Blood Count 3.69 L Hemoglobin 11.1 L Hematocrit 33.2 L Mean Corpuscular Volume 90.0 Mean Corpuscular Hemoglobin 30.1 Mean Corpuscular 33.4 Hemoglobin Concent Red Cell Distribution Width 12.8 Platelet Count 383 # Mean Platelet Volume 11.0 H Immature Granulocytes % 4.800 H Neutrophils % 80.0 H Lymphocytes % 6.4 L Monocytes % 8.1 Eosinophils % 0.0 Basophils % 0.7 Nucleated Red Blood Cells % 0.0 Immature Granulocytes # 0.880 H Neutrophils # 14.6 H Lymphocytes # 1.2 Monocytes # 1.5 H Eosinophils # 0.0 Basophils # 0.1 Nucleated Red Blood Cells # 0.0 Sodium Level 141 Potassium Level 3.8 Chloride Level 107 Carbon Dioxide Level 18 L Anion Gap 16 H Blood Urea Nitrogen 29 H Creatinine 0.99 Est Glomerular Filtrat Rate mL/min Glucose Level 190 Calcium Level 10.0 Magnesium Level 2.0 Blood Gas Specimen Source Blood arterial Arterial Blood Date Drawn 08/26/2018 10:37:51 AM Arterial Blood pH 7.442 (Temp corrected) Arterial Blood pCO2 33.4 L (Temp correct) Arterial Blood pO2 82.3 (Temp corrected) Arterial Blood HCO3 22.3 Arterial Blood Base Excess -1.3 Arterial Blood 96.1 Oxygen Saturation Nelson Test ACCEPTAB Arterial Blood Gas Left Radial Puncture Site Arterial 0 Blood Carboxyhemoglobin Arterial Blood 0.2 Methemoglobin Blood Gas A-a O2 92.4 H Differential Oxyhemoglobin Percent 95.9 Blood Gas Temperature 37.0 Blood Gas Modality NASAL CANNULA FiO2 30.0 Blood Gas Notified Whom TM Blood Gas Notified Time 08/26/2018 10:45:25 AM Medications Medications Current Medications Hydralazine HCl (Apresoline) 10 mg Q4H PRN IV ELEVATED BLOOD PRESSURE Last administered on 08/24/18at 23:00; Admin Dose 10 MG; Start 08/24/18 at 20:00 IV Flush (NS 3 ml) 3 ml PER PROTOCOL IV ; Start 08/24/18 at 20:30 Ondansetron HCl (Zofran Inj) 4 mg Q6H PRN IV NAUSEA/VOMITING; Start 08/24/18 at 20:30 Acetaminophen (Tylenol Tab) 650 mg Q6H PRN PO .PAIN 1-3 OR TEMP; Start 08/24/18 at 20:30 Docusate Sodium (Colace) 100 mg Q12H PRN PO .CONSTIPATION; Start 08/24/18 at 20:30 Bisacodyl (Dulcolax) 5 mg DAILY PRN PO .CONSTIPATION; Start 08/24/18 at 20:30 Levalbuterol (Xopenex Neb) 1.25 mg Q4H RESP THERAPY HHN Last administered on 08/26/18 01:57; Admin Dose 1.25 MG; Start 08/24/18 at 23:00 Ipratropium [place] (Atrovent 0.02% (Neb)) 0.5 mg Q4H RESP THERAPY HHN Last administered on 08/26/18 09:59; Admin Dose 0.5 MG; Start 08/24/18 at 23:00 Amlodipine Besylate (Norvasc) 5 mg DAILY PO Last administered on 08/26/18 08:36; Admin Dose 5 MG; Start 08/25/18 at 09:00 Carbidopa/Levodopa (Sinemet ()) 1 tab TID PO Last administered on 08/26/18 08:36; Admin Dose 1 TAB; Start 08/25/18 at 09:00 Atorvastatin Calcium (Lipitor) 40 mg DAILY@21 PO Last administered on 08/25/18 21:44; Admin Dose 40 MG; Start 08/25/18 at 21:00 Ceftriaxone Sodium 50 ml @ 100 mls/hr Q24H IVPB Last administered on 08/25/18 17:50; Admin Dose 100 MLS/HR; Start 08/25/18 at 18:00 Azithromycin 250 ml @ 250 mls/hr Q24H IVPB Last administered on 08/25/18 18:08; Admin Dose 250 MLS/HR; Start 08/25/18 at 18:00 Prednisone (Prednisone) 20 mg BID PO Last administered on 08/26/18 08:36; Admin Dose 20 MG; Start 08/25/18 at 09:00; Stop 08/30/18 at 08:59 Pantoprazole (Protonix Tab) 40 mg DAILY@06 PO Last administered on 08/26/18 05:44; Admin Dose 40 MG; Start 08/25/18 at 06:00 Heparin Sodium (Porcine) (Heparin (5000 Units/1ml)) 5,000 unit BID SC Last administered on 08/26/18 08:40; Admin Dose 5,000 UNIT; Start 08/25/18 at 21:00 Aspirin (Aspirin) 81 mg DAILY PO Last administered on 08/26/18 08:36; Admin D ose 81 MG; Start 08/25/18 at 15:00 Kennedy Ignacio DO Aug 26, 2018 12:31
[2018-08-26] MEDS: METOPROLOL 25 MG TAB PO SCH ×2 (12:39→20:36)
--- NOTE | 2018-08-26 13:20 | PN ---
Date/Time of Note Date/Time of Note DATE: 08/26/18 TIME: 13:06 Assessment/Plan VTE Prophylaxis Risk score (from Ns)>0 risk: 4 SCD applied (from [facility] [place]): Yes Pharmacological prophylaxis: heparin Lines/Catheters IV Catheter Type (from [facility]): [place] Urinary Cath still in place: No Assessment/Plan Assessment/Plan 1. COPD exacerbation, improving, neb prn, antibiotics and prednisone 2. Acute renal failure, improved 3. HTN, increase norvasc 4. Dyslipidemia, on statin 5. Parkinson's disease: Continue home meds 6. CAD, s/p CABG 7. DVT GI prophylaxis: heparin 8. Hallucination, decrease steroid Result Diagram: 08/26/18 0551 08/26/18 0551 Results 24hrs Laboratory Tests Test 08/25/18 15:00 08/26/18 05:51 08/26/18 10:16 Creatine Kinase 73 140 Creatine Kinase Index 7.7 6.2 Creatinine Kinase MB (Mass) 5.59 H 8.71 H Troponin I 0.206 *H 0.148 *H White Blood Count 18.2 #H Red Blood Count 3.69 L Hemoglobin 11.1 L Hematocrit 33.2 L Mean Corpuscular Volume 90.0 Mean Corpuscular Hemoglobin 30.1 Mean Corpuscular 33.4 Hemoglobin Concent Red Cell Distribution Width 12.8 Platelet Count 383 # Mean Platelet Volume 11.0 H Immature Granulocytes % 4.800 H Neutrophils % 80.0 H Lymphocytes % 6.4 L Monocytes % 8.1 Eosinophils % 0.0 Basophils % 0.7 Nucleated Red Blood Cells % 0.0 Immature Granulocytes # 0.880 H Neutrophils # 14.6 H Lymphocytes # 1.2 Monocytes # 1.5 H Eosinophils # 0.0 Basophils # 0.1 Nucleated Red Blood Cells # 0.0 Sodium Level 141 Potassium Level 3.8 Chloride Level 107 Carbon Dioxide Level 18 L Anion Gap 16 H Blood Urea Nitrogen 29 H Creatinine 0.99 Est Glomerular Filtrat Rate mL/min Glucose Level 190 Calcium Level 10.0 Magnesium Level 2.0 Blood Gas Specimen Source Blood arterial Arterial Blood Date Drawn 08/26/2018 10:37:51 AM Arterial Blood pH 7.442 (Temp corrected) Arterial Blood pCO2 33.4 L (Temp correct) Arterial Blood pO2 82.3 (Temp corrected) Arterial Blood HCO3 22.3 Arterial Blood Base Excess -1.3 Arterial Blood 96.1 Oxygen Saturation Nelson Test ACCEPTAB Arterial Blood Gas Left Radial Puncture Site Arterial 0 Blood Carboxyhemoglobin Arterial Blood 0.2 Methemoglobin Blood Gas A-a O2 92.4 H Differential Oxyhemoglobin Percent 95.9 Blood Gas Temperature 37.0 Blood Gas Modality NASAL CANNULA FiO2 30.0 Blood Gas Notified Whom TM Blood Gas Notified Time 08/26/2018 10:45:25 AM Subjective 24 Hr Interval Summary Free Text/Dictation visual hallucination, poor sleep at night Exam/Review of Systems Exam Vitals Vital Signs Date Temp Pulse Resp B/P (MAP) Pulse Ox O2 O2 Flow FiO2 Time Delivery Rate 08/26/18 94 12:03 08/26/18 97.7 19 181/81 98 11:18 (114) 08/26/18 Nasal 2.0 10:01 Cannula 08/26/18 09:55 Intake and Output 08/25/18 08/25/18 08/26/18 1515:00 23:00 07:00 IntakeIntake Total 250 ml 500 ml 600 ml OutputOutput Total 800 ml BalanceBalance 250 ml 500 ml -200 ml Constitutional: alert, oriented, well developed Psych: no complaints, nl mood/affect Head: normocephalic, atraumatic Eyes: nl conjunctiva, EOMI, nl lids, PERRL ENMT: nl external ears & nose, nl lips & teeth, nl nasal mucosa & septum, mucosa pink and moist Neck: supple, non-tender Respiratory: diminished breath sounds Cardiovascular: regular rate and rhythm, nl pulses; No bruits, No diastolic murmur, No edema, No gallop, No irregular rhythm, No jugular venous distention (JVD), No murmurs/extra sounds, No rub, No systolic murmur, No S3, No S4, No other Gastrointestinal: soft, nl liver, spleen, non-tender Musculoskeletal: nl extremities to inspection Extremities: normal pulses; No calf tenderness, No cyanosis, No clubbing, No edema, No pitting pedal edema, No palpable cord, No tenderness, No other Neurological: [employer] II-XII intact, nl mental status, nl speech, nl strength Results Results 24hrs Laboratory Tests Test 08/25/18 15:00 08/26/18 05:51 08/26/18 10:16 Creatine Kinase 73 140 Creatine Kinase Index 7.7 6.2 Creatinine Kinase MB (Mass) 5.59 H 8.71 H Troponin I 0.206 *H 0.148 *H White Blood Count 18.2 #H Red Blood Count 3.69 L Hemoglobin 11.1 L Hematocrit 33.2 L Mean Corpuscular Volume 90.0 Mean Corpuscular Hemoglobin 30.1 Mean Corpuscular 33.4 Hemoglobin Concent Red Cell Distribution Width 12.8 Platelet Count 383 # Mean Platelet Volume 11.0 H Immature Granulocytes % 4.800 H Neutrophils % 80.0 H Lymphocytes % 6.4 L Monocytes % 8.1 Eosinophils % 0.0 Basophils % 0.7 Nucleated Red Blood Cells % 0.0 Immature Granulocytes # 0.880 H Neutrophils # 14.6 H Lymphocytes # 1.2 Monocytes # 1.5 H Eosinophils # 0.0 Basophils # 0.1 Nucleated Red Blood Cells # 0.0 Sodium Level 141 Potassium Level 3.8 Chloride Level 107 Carbon Dioxide Level 18 L Anion Gap 16 H Blood Urea Nitrogen 29 H Creatinine 0.99 Est Glomerular Filtrat Rate mL/min Glucose Level 190 Calcium Level 10.0 Magnesium Level 2.0 Blood Gas Specimen Source Blood arterial Arterial Blood Date Drawn 08/26/2018 10:37:51 AM Arterial Blood pH 7.442 (Temp corrected) Arterial Blood pCO2 33.4 L (Temp correct) Arterial Blood pO2 82.3 (Temp corrected) Arterial Blood HCO3 22.3 Arterial Blood Base Excess -1.3 Arterial Blood 96.1 Oxygen Saturation Nelson Test ACCEPTAB Arterial Blood Gas Left Radial Puncture Site Arterial 0 Blood Carboxyhemoglobin Arterial Blood 0.2 Methemoglobin Blood Gas A-a O2 92.4 H Differential Oxyhemoglobin Percent 95.9 Blood Gas Temperature 37.0 Blood Gas Modality NASAL CANNULA FiO2 30.0 Blood Gas Notified Whom TM Blood Gas Notified Time 08/26/2018 10:45:25 AM Medications Medication Current Medications Hydralazine HCl (Apresoline) 10 mg Q4H PRN IV ELEVATED BLOOD PRESSURE Last administered on 08/24/18at 23:00; Admin Dose 10 MG; Start 08/24/18 at 20:00 IV Flush (NS 3 ml) 3 ml PER PROTOCOL IV ; Start 08/24/18 at 20:30 Ondansetron HCl (Zofran Inj) 4 mg Q6H PRN IV NAUSEA/VOMITING; Start 08/24/18 at 20:30 Acetaminophen (Tylenol Tab) 650 mg Q6H PRN PO .PAIN 1-3 OR TEMP; Start 08/24/18 at 20:30 Docusate Sodium (Colace) 100 mg Q12H PRN PO .CONSTIPATION; Start 08/24/18 at 20:30 Bisacodyl (Dulcolax) 5 mg DAILY PRN PO .CONSTIPATION; Start 08/24/18 at 20:30 Levalbuterol (Xopenex Neb) 1.25 mg Q4H RESP THERAPY HHN Last administered on 08/26/18 01:57; Admin Dose 1.25 MG; Start 08/24/18 at 23:00 Ipratropium [place] (Atrovent 0.02% (Neb)) 0.5 mg Q4H RESP THERAPY HHN Last administered on 08/26/18 09:59; Admin Dose 0.5 MG; Start 08/24/18 at 23:00 Amlodipine Besylate (Norvasc) 5 mg DAILY PO Last administered on 08/26/18 08:36; Admin Dose 5 MG; Start 08/25/18 at 09:00 Carbidopa/Levodopa (Sinemet (25/ 100)) 1 tab TID PO Last administered on 12:38; Admin Dose 1 TAB; Start 08/25/18 at 09:00 Atorvastatin Calcium (Lipitor) 40 mg DAILY@21 PO Last administered on 08/25/18 21:44; Admin Dose 40 MG; Start 08/25/18 at 21:00 Ceftriaxone Sodium 50 ml @ 100 mls/hr Q24H IVPB Last administered on 08/25/18 17:50; Admin Dose 100 MLS/HR; Start 08/25/18 at 18:00 Azithromycin 250 ml @ 250 mls/hr Q24H IVPB Last administered on 08/25/18 18:08; Admin Dose 250 MLS/HR; Start 08/25/18 at 18:00 Prednisone (Prednisone) 20 mg BID PO Last administered on 08/26/18 08:36; Admin Dose 20 MG; Start 08/25/18 at 09:00; Stop 08/30/18 at 08:59 Pantoprazole (Protonix Tab) 40 mg DAILY@06 PO Last administered on 08/26/18 05:44; Admin Dose 40 MG; Start 08/25/18 at 06:00 Heparin Sodium (Porcine) (Heparin (5000 Units/1ml)) 5,000 unit BID SC Last administered on 08/26/18at 08:40; Admin Dose 5,000 UNIT; Start 08/25/18 at 21:00 Aspirin (Aspirin) 81 mg DAILY PO Last administered on 08/26/18at 08:36; Admin Dose 81 MG; Start 08/25/18 at 15:00 Metoprolol Tartrate (Lopressor) 25 mg BID PO Last administered on 08/26/18at 12:39; Admin Dose 25 MG; Start 08/26/18 at 12:30 ARAMIS YATES MD Aug 26, 2018 13:16
[2018-08-26] MEDS: CEFTRIAXONE 1 GM/50 ML (PMX) 50 ML IVPB SCH (17:34)
[2018-08-26] MEDS: AZITHROMYCIN 500MG/NS (PMX) 250 ML IVPB SCH (18:23)
[2018-08-26] MEDS: ATORVASTATIN 40 MG TAB PO SCH (20:35)
[2018-08-26] MEDS: MELATONIN 5 MG TABLET PO SCH (20:36)
[2018-08-26] MEDS ORDERED: LORAZEPAM 2 MG INJ IV ONE (22:00)
[2018-08-26] MEDS ORDERED: HALOPERIDOL 5 MG INJ IM ONE (22:00)
[2018-08-27] VITALS (10 sets, daily range): BP systolic 116–144; BP diastolic 57–81; PULSE 61–112; RESP 18–20
[2018-08-27] MEDS: LEVALBUTEROL (NEB) 1.25 MG/0.5 ML AMP HHN SCH ×6 (00:52→20:07)
[2018-08-27] MEDS: IPRATROPIUM (NEB) 0.5 MG/2.5 ML AMP HHN SCH ×6 (00:52→20:08)
[2018-08-27] MEDS: PANTOPRAZOLE (EC) 40 MG TAB PO SCH (05:56)
[2018-08-27] MEDS: METOPROLOL 25 MG TAB PO SCH ×2 (08:44→21:53)
[2018-08-27] MEDS: ASPIRIN 81 MG TAB PO SCH (08:44)
[2018-08-27] MEDS: CARBIDOPA/LEVODOPA (25/100) TAB PO SCH ×3 (08:45→21:52)
[2018-08-27] MEDS: HEPARIN 5,000 UNIT/1 ML VIAL SC SCH ×2 (08:45→21:59)
[2018-08-27] MEDS: predniSONE 20 MG TAB PO SCH (08:46)
[2018-08-27] MEDS: AMLODIPINE 10 MG TAB PO SCH (09:07)
--- NOTE | 2018-08-27 14:04 | CONS ---
Assessment/Plan Assessment/Plan Assessment/Plan (Daily) Assessment: Respiratory distress Likely COPD exacerbation Mildly elevated troponin, trending down Preserved ejection fraction Hypertension CAD with history of CABG Parkinson's disease Plan: ACS less likely medical mgt dw family no changes in cardiac meds Consultation Date/Type/Reason Admit Date/Time Aug 25, 2018 at 22:51 Initial Consult Date Type of Consult Cardiology Date/Time of Note DATE: 08/27/18 TIME: 14:02 24 HR Interval Summary Subjective hx not possible: pt non-verbal Detailed Summary Respiratory: no complaints Cardiovascular: no complaints Gastrointestinal: no complaints Musculoskeletal: no complaints Skin: no complaints Neurologic: confusion Endocrine: no complaints Exam/Review of Systems Vital Signs Vitals Vital Signs Date Temp Pulse Resp B/P (MAP) Pulse Ox O2 O2 Flow FiO2 Time Delivery Rate 08/27/18 97.7 88 18 144/74 94 Nasal 11:35 (97) Cannula 08/27/18 2.0 11:03 08/26/18 09:55 Intake and Output 08/26/18 08/26/18 08/27/18 1515:00 23:00 07:00 IntakeIntake Total 500 ml BalanceBalance 500 ml Exam Constitutional: frail Head: normocephalic, atraumatic Neck: supple Respiratory: clear to auscultation Cardiovascular: regular rate and rhythm Gastrointestinal: soft Musculoskeletal: nl extremities to inspection Extremities: normal pulses Labs Result Diagram: 08/27/18 0648 08/27/18 0648 Results 24hrs Laboratory Tests Test 08/27/18 06:48 White Blood Count 17.8 H Red Blood Count 3.56 L Hemoglobin 10.7 L Hematocrit 32.1 L Mean Corpuscular Volume 90.2 Mean Corpuscular Hemoglobin 30.1 Mean Corpuscular Hemoglobin Concent 33.3 Red Cell Distribution Width 12.9 Platelet Count 354 Mean Platelet Volume 10.1 Immature Granulocytes % 2.900 H Neutrophils % 79.1 H Lymphocytes % 8.4 L Monocytes % 9.1 Eosinophils % 0.1 Basophils % 0.4 Nucleated Red Blood Cells % 0.0 Immature Granulocytes # 0.520 H Neutrophils # 14.1 H Lymphocytes # 1.5 Monocytes # 1.6 H Eosinophils # 0.0 Basophils # 0.1 Nucleated Red Blood Cells # 0.0 Sodium Level 141 Potassium Level 3.8 Chloride Level 102 Carbon Dioxide Level 27 Anion Gap 12 Blood Urea Nitrogen 25 H Creatinine 0.97 Est Glomerular Filtrat Rate mL/min Glucose Level 82 # Calcium Level 9.1 Medications Medications Current Medications Hydralazine HCl (Apresoline) 10 mg Q4H PRN IV ELEVATED BLOOD PRESSURE Last administered on 08/24/18 23:00; Admin Dose 10 MG; Start 08/24/18 at 20:00 IV Flush (NS 3 ml) 3 ml PER PROTOCOL IV ; Start 08/24/18 at 20:30 Ondansetron HCl (Zofran Inj) 4 mg Q6H PRN IV NAUSEA/VOMITING; Start 08/24/18 at 20:30 Acetaminophen (Tylenol Tab) 650 mg Q6H PRN PO .PAIN 1-3 OR TEMP; Start 08/24/18 at 20:30 Docusate Sodium (Colace) 100 mg Q12H PRN PO .CONSTIPATION; Start 08/24/18 at 20:30 Bisacodyl (Dulcolax) 5 mg DAILY PRN PO .CONSTIPATION; Start 08/24/18 at 20:30 Levalbuterol (Xopenex Neb) 1.25 mg Q4H RESP THERAPY HHN Last administered on 08/27/18 13:57; Admin Dose 1.25 MG; Start 08/24/18 at 23:00 Ipratropium [place] (Atrovent 0.02% (Neb)) 0.5 mg Q4H RESP THERAPY HHN Last administered on 08/27/18 13:57; Admin Dose 0.5 MG; Start 08/24/18 at 23:00 Carbidopa/Levodopa (Sinemet (25/ 100)) 1 tab TID PO Last administered on 08/27/18 12:16; Admin Dose 1 TAB; Start 08/25/18 at 09:00 Atorvastatin Calcium (Lipitor) 40 mg DAILY@21 PO Last administered on 08/26/18 20:35; Admin Dose 40 MG; Start 08/25/18 at 21:00 Ceftriaxone Sodium 50 ml @ 100 mls/hr Q24H IVPB Last administered on 08/26/18 17:34; Admin Dose 100 MLS/HR; Start 08/25/18 at 18:00 Azithromycin 250 ml @ 250 mls/hr Q24H IVPB Last administered on 08/26/18 18:23; Admin Dose 250 MLS/HR; Start 08/25/18 at 18:00 Pantoprazole (Protonix Tab) 40 mg DAILY@06 PO Last administered on 08/27/18 05:56; Admin Dose 40 MG; Start 08/25/18 at 06:00 Heparin Sodium (Porcine) (Heparin (5000 Units/1ml)) 5,000 unit BID SC Last administered on 08/27/18 08:45; Admin Dose 5,000 UNIT; Start 08/25/18 at 21:00 Aspirin (Aspirin) 81 mg DAILY PO Last administered on 08/27/18 08:44; Admin Dose 81 MG; Start 08/25/18 at 15:00 Metoprolol Tartrate (Lopressor) 25 mg BID PO Last administered on 08/27/18 08: 44; Admin Dose 25 MG; Start 08/26/18 at 12:30 Amlodipine Besylate (Norvasc) 10 mg DAILY PO Last administered on 08/27/18 09:07; Admin Dose 10 MG; Start 08/27/18 at 09:00 Prednisone (Prednisone) 20 mg DAILY PO Last administered on 08/27/18 08:46; Admin Dose 20 MG; Start 08/27/18 at 09:00 Melatonin (Melatonin) 5 mg HS PO Last administered on 08/26/18 20:36; Admin Dose 5 MG; Start 08/26/18 at 21:00 BRITTNI ESCALANTE MD Aug 27, 2018 14:04
--- NOTE | 2018-08-27 16:20 | PN ---
Date/Time of Note Date/Time of Note DATE: 08/27/18 TIME: 16:19 Assessment/Plan VTE Prophylaxis Risk score (from Ns)>0 risk: 5 SCD applied (from Ns): Yes Pharmacological prophylaxis: heparin Lines/Catheters IV Catheter Type (from Nrs): [place] Lock Urinary Cath still in place: No Assessment/Plan Assessment/Plan 1. COPD exacerbation, improving, neb prn, antibiotics and prednisone 2. Acute renal failure, improved 3. HTN, increase norvasc 4. Dyslipidemia, on statin 5. Parkinson's disease: Continue home meds 6. CAD, s/p CABG 7. DVT GI prophylaxis: heparin 8. Confusion, CT head Result Diagram: 08/27/18 0648 08/27/18 0648 Results 24hrs Laboratory Tests Test 08/27/18 06:48 White Blood Count 17.8 H Red Blood Count 3.56 L Hemoglobin 10.7 L Hematocrit 32.1 L Mean Corpuscular Volume 90.2 Mean Corpuscular Hemoglobin 30.1 Mean Corpuscular Hemoglobin Concent 33.3 Red Cell Distribution Width 12.9 Platelet Count 354 Mean Platelet Volume 10.1 Immature Granulocytes % 2.900 H Neutrophils % 79.1 H Lymphocytes % 8.4 L Monocytes % 9.1 Eosinophils % 0.1 Basophils % 0.4 Nucleated Red Blood Cells % 0.0 Immature Granulocytes # 0.520 H Neutrophils # 14.1 H Lymphocytes # 1.5 Monocytes # 1.6 H Eosinophils # 0.0 Basophils # 0.1 Nucleated Red Blood Cells # 0.0 Sodium Level 141 Potassium Level 3.8 Chloride Level 102 Carbon Dioxide Level 27 Anion Gap 12 Blood Urea Nitrogen 25 H Creatinine 0.97 Est Glomerular Filtrat Rate mL/min Glucose Level 82 # Calcium Level 9.1 Subjective 24 Hr Interval Summary Free Text/Dictation still confused Exam/Review of Systems Exam Vitals Vital Signs Date Temp Pulse Resp B/P (MAP) Pulse Ox O2 O2 Flow FiO2 Time Delivery Rate 08/27/18 98.0 86 18 135/62 97 Room Air 16:07 (86) 08/27/18 2.0 14:05 08/26/18 21 09:55 Intake and Output 08/26/18 08/26/18 08/27/18 1515:00 23:00 07:00 IntakeIntake Total 500 ml BalanceBalance 500 ml Constitutional: alert, well developed Head: normocephalic, atraumatic Eyes: nl conjunctiva, EOMI, nl lids ENMT: nl external ears & nose, nl lips & teeth, nl nasal mucosa & septum Neck: supple, non-tender Respiratory: clear to auscultation; No congested cough, No crackles/rales, No diminished breath sounds, No intercostal retraction, No labored breathing, No respirations, No tactile fremitus, No wheezing, No other Cardiovascular: regular rate and rhythm, nl pulses Gastrointestinal: soft, nl liver, spleen, non-tender Musculoskeletal: nl extremities to inspection Extremities: normal pulses; No calf tenderness, No cyanosis, No clubbing, No edema, No pitting pedal edema, No palpable cord, No tenderness, No other Neurological: 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 ASSISTANT II-XII 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, confused Results Results 24hrs Laboratory Tests Test 08/27/18 06:48 White Blood Count 17.8 H Red Blood Count 3.56 L Hemoglobin 10.7 L Hematocrit 32.1 L Mean Corpuscular Volume 90.2 Mean Corpuscular Hemoglobin 30.1 Mean Corpuscular Hemoglobin Concent 33.3 Red Cell Distribution Width 12.9 Platelet Count 354 Mean Platelet Volume 10.1 Immature Granulocytes % 2.900 H Neutrophils % 79.1 H Lymphocytes % 8.4 L Monocytes % 9.1 Eosinophils % 0.1 Basophils % 0.4 Nucleated Red Blood Cells % 0.0 Immature Granulocytes # 0.520 H Neutrophils # 14.1 H Lymphocytes # 1.5 Monocytes # 1.6 H Eosinophils # 0.0 Basophils # 0.1 Nucleated Red Blood Cells # 0.0 Sodium Level 141 Potassium Level 3.8 Chloride Level 102 Carbon Dioxide Level 27 Anion Gap 12 Blood Urea Nitrogen 25 H Creatinine 0.97 Est Glomerular Filtrat Rate mL/min Glucose Level 82 # Calcium Level 9.1 Medications Medication Current Medications Hydralazine HCl (Apresoline) 10 mg Q4H PRN IV ELEVATED BLOOD PRESSURE Last administered on 08/24/18at 23:00; Admin Dose 10 MG; Start 08/24/18 at 20:00 IV Flush (NS 3 ml) 3 ml PER PROTOCOL IV ; Start 08/24/18 at 20:30 Ondansetron HCl (Zofran Inj) 4 mg Q6H PRN IV NAUSEA/VOMITING; Start 08/24/18 at 20:30 Acetaminophen (Tylenol Tab) 650 mg Q6H PRN PO .PAIN 1-3 OR TEMP; Start 08/24/18 at 20:30 Docusate Sodium (Colace) 100 mg Q12H PRN PO .CONSTIPATION; Start 08/24/18 at 20:30 Bisacodyl (Dulcolax) 5 mg DAILY PRN PO .CONSTIPATION; Start 08/24/18 at 20:30 Levalbuterol (Xopenex Neb) 1.25 mg Q4H RESP THERAPY HHN Last administered on 08/27/18 13:57; Admin Dose 1.25 MG; Start 08/24/18 at 23:00 Ipratropium [place] (Atrovent 0.02% (Neb)) 0.5 mg Q4H RESP THERAPY HHN Last administered on 08/27/18 13:57; Admin Dose 0.5 MG; Start 08/24/18 at 23:00 Carbidopa/Levodopa (Sinemet (25/ 100)) 1 tab TID PO Last administered on 08/27/18 12:16; Admin Dose 1 TAB; Start 08/25/18 at 09:00 Atorvastatin Calcium (Lipitor) 40 mg DAILY@21 PO Last administered on 08/26/18 20:35; Admin Dose 40 MG; Start 08/25/18 at 21:00 Ceftriaxone Sodium 50 ml @ 100 mls/hr Q24H IVPB Last administered on 08/26/18 17:34; Admin Dose 100 MLS/HR; Start 08/25/18 at 18:00 Azithromycin 250 ml @ 250 mls/hr Q24H IVPB Last administered on 08/26/18 18:23; Admin Dose 250 MLS/HR; Start 08/25/18 at 18:00 Pantoprazole (Protonix Tab) 40 mg DAILY@06 PO Last administered on 08/27/18 05:56; Admin Dose 40 MG; Start 08/25/18 at 06:00 Heparin Sodium (Porcine) (Heparin (5000 Units/1ml)) 5,000 unit BID SC Last administered on 08/27/18 08:45; Admin Dose 5,000 UNIT; Start 08/25/18 at 21:00 Aspirin (Aspirin) 81 mg DAILY PO Last administered on 08/27/18 08:44; Admin Dose 81 MG; Start 08/25/18 at 15:00 Metoprolol Tartrate (Lopressor) 25 mg BID PO Last administered on 08/27/18 08:44; Admin Dose 25 MG; Start 08/26/18 at 12:30 Amlodipine Besylate (Norvasc) 10 mg DAILY PO Last administered on 08/27/18 09:07; Admin Dose 10 MG; Start 08/27/18 at 09:00 Prednisone (Prednisone) 20 mg DAILY PO Last administered on 08/27/18at 08:46; Admin Dose 20 MG; Start 08/27/18 at 09:00 Melatonin (Melatonin) 5 mg HS PO Last administered on 08/26/18at 20:36; Admin Dose 5 MG; Start 08/26/18 at 21:00 ARAMIS YATES MD Aug 27, 2018 16:20
[2018-08-27] MEDS: CEFTRIAXONE 1 GM/50 ML (PMX) 50 ML IVPB SCH (17:28)
[2018-08-27] MEDS: AZITHROMYCIN 500MG/NS (PMX) 250 ML IVPB SCH (18:13)
[2018-08-27] MEDS: MELATONIN 5 MG TABLET PO SCH (21:52)
[2018-08-27] MEDS: ATORVASTATIN 40 MG TAB PO SCH (21:52)
[2018-08-28] VITALS (7 sets, daily range): BP systolic 123–144; BP diastolic 58–65; PULSE 67–82; RESP 17–20
[2018-08-28] MEDS: LEVALBUTEROL (NEB) 1.25 MG/0.5 ML AMP HHN SCH ×5 (00:06→16:47)
[2018-08-28] MEDS: IPRATROPIUM (NEB) 0.5 MG/2.5 ML AMP HHN SCH ×5 (00:06→16:47)
[2018-08-28] MEDS: PANTOPRAZOLE (EC) 40 MG TAB PO SCH (06:57)
[2018-08-28] MEDS: predniSONE 20 MG TAB PO SCH (08:38)
[2018-08-28] MEDS: ASPIRIN 81 MG TAB PO SCH (08:38)
[2018-08-28] MEDS: AMLODIPINE 10 MG TAB PO SCH (08:38)
[2018-08-28] MEDS: CARBIDOPA/LEVODOPA (25/100) TAB PO SCH ×2 (08:39→13:04)
[2018-08-28] MEDS: METOPROLOL 25 MG TAB PO SCH (08:39)
[2018-08-28] MEDS: HEPARIN 5,000 UNIT/1 ML VIAL SC SCH (08:40)
--- NOTE | 2018-08-28 16:27 | PDOCDIS ---
Discharge Instructions DIAGNOSIS Discharge Diagnosis Upper respiratory infection Suspect community-acquired pneumonia CONDITION [id number] Patient Condition: [id number] Good HOME CARE INSTRUCTIONS: [id number] Diet Instructions: [id number] Regular ACTIVITY: [id number] Activity Restrictions: [id number] No Restrictions FOLLOW UP/APPOINTMENTS Follow-up Plan 1. Take all medications as prescribed 2. See your primary care doctor in 1-2 weeks. TORIE SAM MD Aug 28, 2018 16:26
--- NOTE | 2018-08-28 17:11 | DS ---
Date/Time of Note Date/Time of Note DATE: 08/28/18 TIME: 17:05 Discharge Summary Admission/Discharge Info Admit Date/Time Aug 25, 2018 at 22:51 Discharge Date/Time Aug 28, 2018 Discharge Diagnosis Upper respiratory infection Suspect community-acquired pneumonia Patient Condition: Good Consults None Procedures None Hx of Present Illness Chief complaint: Cough fever times 3 days The following history was obtained from the patient's daughter Mikala over the phone as the patient was unable to provide a full history given language barrier and his limited knowledge of his medical issues. The patient is a 78-year-old male, presenting to the ER because of cough, fever, dyspnea for the last 3 days, worse today. He went to his doctor office who sent him to the emergency department as a doctor suspect that he may have a pneumonia. The daughter also reports that he has had a decreased appetite over the last few days. He denies facial pain, neck pain, chest pain, abdominal pain, vomiting, dysuria, diarrhea. He is a social smoker. 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 He did not have leukocytosis, fevers, or other evidence of sepsis on admission. He was started on ceftriaxone and azithromycin; as well as prednisone. Unfortunately patient was kept bedridden most of hospital course. On day of discharge he was ambulating without dizziness or dyspnea, saturating 93% on room air. Discharged home to daughter. Home Meds Reported Medications Carbidopa/Levodopa (Carbidopa-Levodopa 25-100 Tab) 1 Each Tablet, 1 EACH PO TID, TAB 08/24/18 Olmesartan/Hydrochlorothiazide (Olmesartan-Hctz 20-12.5 mg Tab) 1 Each Tablet, 1 EACH PO DAILY, TAB 08/24/18 Amlodipine Besylate* (Norvasc*) 5 Mg Tablet, 5 MG PO DAILY, TAB 08/24/18 Propranolol Hcl* (Propranolol Hcl*) 20 Mg Tablet, 20 MG PO BID, TAB 08/24/18 Rosuvastatin Calcium* (Crestor*) 10 Mg Tablet, 10 MG PO QHS, #30 TAB 08/24/18 Clonidine Hcl* (Clonidine Hcl*) 0.1 Mg Tab, 0.1 MG PO NEEDED PRN for HTN, TAB 08/24/18 Discontinued Reported Medications Simvastatin* (Zocor*) 40 Mg Tablet, 40 MG PO QHS, #30 TAB 07/26/15 Aspirin* (Aspirin* EC) 81 Mg Tablet.dr, 81 MG PO DAILY, TAB 07/26/15 Discontinued Scripts Methylprednisolone* (Medrol* DOSE PACK) 4 Mg/Dose-Pack Tab.ds.pk, 4 MG PO . DIRECTED, #1 PACKET Prov:PEREZ SINGH 04/25/17 Azithromycin* (Azithromycin*) 250 Mg Tablet, 250 MG PO DAILY, #4 TAB Prov:PEREZ SINGH J 04/25/17 Furosemide* (Lasix*) 20 Mg Tablet, 20 MG PO DAILY for 30 Days, TAB Prov:PEREZ SINGH J 04/25/17 Lisinopril* (Lisinopril*) 5 Mg Tablet, 5 MG PO DAILY for 30 Days, #30 TAB Prov:PEREZ SINGH J 04/25/17 Tamsulosin Hcl* (Flomax*) 0.4 Mg Cap.er.24h, 0.4 MG PO HS for 30 Days, #30 CAP Prov:PEREZ SINGH J 04/25/17 Albuterol Sulfate* (Ventolin HFA*) 18 Gm Hfa.aer.ad, 2 PUFF INHALATION Q4H, #1 INHALER Prov:ARIK BERG 07/28/15 Salmeterol Xinaf/Fluticasone* (Advair*) 250-50 Diskus Inhaler, 1 INH INHALATION BID for 30 Days, INHALER Prov:REGARIK SANTIZO 07/28/15 Clonidine Hcl* (Clonidine Hcl*) 0.1 Mg Tab, 0.1 MG PO Q4H PRN for sbp>160, #30 TAB Prov:REGARIK SANTIZO 07/28/15 Hydralazine Hcl* (Hydralazine Hcl*) 25 Mg Tab, 25 MG PO Q8 for 30 Days, TAB Prov:REGARIK SANTIZO 07/28/15 Atenolol (Tenormin) 25 Mg Tab, 12.5 MG PO BID for 30 Days, TAB Prov:REGARIK SANTIZO 07/28/15 Amlodipine Besylate* (Norvasc*) 5 Mg Tab, 5 MG PO BID for 30 Days, TAB Prov:ARIK BERG 07/28/15 Follow-up Plan 1. Take all medications as prescribed 2. See your primary care doctor in 1-2 weeks. Primary Care Provider Deric Norwood Time spent on discharge: > 30 minutes Pending Labs Laboratory Tests Test 08/28/18 07:19 White Blood Count 16.4 10^3/ul (4.8-10.8) Red Blood Count 3.29 10^6/ul (4.70-6.10) Hemoglobin 9.9 g/dl (14.0-18.0) Hematocrit 29.9 % (42.0-52.0) Mean Corpuscular Volume 90.9 fl (82.0-101.0) Mean Corpuscular Hemoglobin 30.1 pg (29.0-33.0) Mean Corpuscular Hemoglobin Concent 33.1 g/dl (32.0-37.0) Red Cell Distribution Width 13.1 % (11.5-14.5) Platelet Count 335 10^3/UL (140-415) Mean Platelet Volume 10.1 fl (7.4-10.4) Immature Granulocytes % 3.200 % (0.001-0.429) Neutrophils % 77.4 % (39.0-77.0) Lymphocytes % 11.2 % (15.0-51.0) Monocytes % 7.7 % (0.0-11.0) Eosinophils % 0.1 % (0.0-7.0) Basophils % 0.4 % (0.0-2.0) Nucleated Red Blood Cells % 0.0 /100WBC (0.0-0.0) Immature Granulocytes # 0.520 10^3/ul (0.0-0.031) Neutrophils # 12.7 10^3/ul (1.6-7.5) Lymphocytes # 1.8 10^3/ul (0.8-2.9) Monocytes # 1.3 10^3/ul (0.3-0.9) Eosinophils # 0.0 10^3/ul (0.0-0.5) Basophils # 0.1 10^3/ul (0.0-0.1) Nucleated Red Blood Cells # 0.0 10^3/ul (0.0-0.0) Sodium Level 142 mmol/L (135-144) Potassium Level 3.9 mmol/L (3.5-5.1) Chloride Level 105 mmol/L (97-110) Carbon Dioxide Level 29 mmol/L (21-31) Anion Gap 8 (5-13) Blood Urea Nitrogen 20 mg/dl (7-20) Creatinine 0.88 mg/dl (0.61-1.24) Est Glomerular Filtrat Rate mL/min mL/min (>60) Glucose Level 86 mg/dl (70-220) Calcium Level 8.7 mg/dl (8.4-10.2) TORIE SAM MD Aug 28, 2018 17:11
== END 2018-08-28 17:58 | disposition home or self-care (01) | DRG 194 ==
LOC: E/R 14:46 → TEL 19:27 → OBSVTOIN 08-25 22:51 → TEL 08-26 09:23
PROVIDERS: ADMIT Family Medicine; ATTEND Internal Medicine
DX: J18.9 Pneumonia, unspecified organism (principal); J44.1 Chronic obstructive pulmonary disease with (acute) exacerbation; N17.9 Acute kidney failure, unspecified; G20 Parkinson's disease; E86.0 Dehydration; R00.1 Bradycardia, unspecified; Z95.1 Presence of aortocoronary bypass graft; I10 Essential (primary) hypertension; E78.5 Hyperlipidemia, unspecified; I25.10 Atherosclerotic heart disease of native coronary artery without angina pectoris; J06.9 Acute upper respiratory infection, unspecified; Y95 Nosocomial condition; Z79.82 Long term (current) use of aspirin
CPT/HCPCS: 36415; 36600; 70450; 71045; 71275; 80048; 80053; 80061; 81001; 82550; 82553; 82803; 83036; 83605; 83735; 84443; 84484; 85025; 85610; 85730; 87040; 87086; 93005; 93306; 94640; 94664; 96360; 96361; G0378; J0360; J0456; J0696; J1630; J1644; J2060; J2930; J3475; J7030; J7512; Q9967